=== PATIENT | male | born 1980 | race Caucasian/White ===

== ENCOUNTER 2023-10-23 13:13 | Outpatient (OUT) | payer BC, SELFPAY | END 2023-10-23 13:14 | disposition home or self-care (01) | LOC: PST 13:13 | PROVIDERS: Visit Provider Surgery | DX: Z01.818 Encounter for other preprocedural examination (principal); K64.8 Other hemorrhoids ==

== ENCOUNTER 2023-10-29 10:19 | Day surgery (SDC) | payer BC, SELFPAY ==
[2023-10-29 10:44] VITALS: BP 147/87; PULSE 66; TEMP 35.8; O2SAT 97; BMI 36.5
[2023-10-29] MEDS: LACTATED RINGER'S SOLUTION 1,000 ML 50 ML IV (10:58)
[2023-10-29 15:29] VITALS: BP 100/64; PULSE 76; TEMP 36.3; O2SAT 96
[2023-10-29 15:44] VITALS: BP 126/68; PULSE 81; O2SAT 96
[2023-10-29 16:14] VITALS: BP 130/70; PULSE 66; O2SAT 96
--- NOTE | 2023-10-29 16:32 | PM.GSPRC ---
Date of procedure: 10/29/23 Indications for Procedure: diagnostic colonoscopy for Family Hx of colon cancer and Hx of internal hemorrhoids Pre-op diagnosis: diagnostic colonoscopy for Family Hx of colon cancer and Hx of internal hem Post-op diagnosis: other (sigmoid polyp (35-40cm), sigmoid diverticulosis ) Procedure: diagnostic colonoscopy with hot snare polypectomy at 35-40cm Previous colonoscopy: never PROCEDURE: The patient was given IV conscious sedation.? The patient's SPO2 remained above 90% throughout the procedure. The colonoscope was inserted per rectum and advanced under direct vision to the cecum without difficulty.? The prep was good.? Findings: Terminal ileum os: normal Cecum/Ascending colon: Normal Transverse colon: normal Descending/Sigmoid colon: mild diverticulosis, hot snare polypectomy at 35-40cm Rectum/Anus: examined in normal and retroflexed positions and was moderate internal hemorrhoids noted but no signs of bleeding or prolapse Withdrawal Time was (minutes): 15 The colon was decompressed and the scope was removed.? The patient tolerated the procedure well. Recommendations/Plan: 1.? Lifestyle and dietary modifications as discussed 2.? F/U Biopsies 3.? F/U in office, colonoscopy repeat timing dependent on biopsy results 4.? Discussed with the family Findings: pedunculated sigmoid polyp Anesthesia: MAC Surgeon: Pawel Early Procedure Summary: diagnostic colonoscopy with hot snare polypectomy at 35-40cm Estimated blood loss (mL): 2 Specimens: see above Complications: No Pathology: other (sigmoid polyp ) Condition: stable Disposition: PACU
[2023-10-29 16:44] VITALS: BP 124/76; PULSE 64; O2SAT 95
[2023-10-29 17:14] VITALS: BP 124/76; PULSE 64; O2SAT 95
== END 2023-10-29 17:14 | disposition home or self-care (01) ==
PROVIDERS: Visit Provider Surgery
PROC: (CPT 811; principal; 2023-10-29 11:35)
DX: Z12.11 Encounter for screening for malignant neoplasm of colon (principal); K57.30 Diverticulosis of large intestine without perforation or abscess without bleeding; D12.5 Benign neoplasm of sigmoid colon; Z80.0 Family history of malignant neoplasm of digestive organs; Z87.898 Personal history of other specified conditions; K64.8 Other hemorrhoids; Z80.6 Family history of leukemia; Z80.49 Family history of malignant neoplasm of other genital organs; R19.4 Change in bowel habit; F41.9 Anxiety disorder, unspecified; M19.90 Unspecified osteoarthritis, unspecified site; Z86.16 Personal history of COVID-19; I10 Essential (primary) hypertension; F32.A Depression, unspecified; E78.1 Pure hyperglyceridemia; Z87.891 Personal history of nicotine dependence; Z90.49 Acquired absence of other specified parts of digestive tract; Z98.52 Vasectomy status
CPT/HCPCS: 45385; 88305; 99999; J2704

== ENCOUNTER 2024-06-09 20:43 | Outpatient (OUT) | payer BC, SELFPAY | END 2024-06-09 20:44 | disposition home or self-care (01) | LOC: SLEEP 20:44 | PROVIDERS: PCP Nurse Practitioner Family; Visit Provider Nurse Practitioner Family | DX: G47.33 Obstructive sleep apnea (adult) (pediatric) (principal); G47.10 Hypersomnia, unspecified | CPT/HCPCS: 95810 ==

== ENCOUNTER 2024-06-30 20:54 | Outpatient (OUT) | payer BC, SELFPAY ==
--- OUTSIDE RECORDS SUMMARY | 2024-06-30 20:56 | XMS_ITS | CCD ---
Author Organization [facility] Care Team Providers Care 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 Name Role Phone CORINNE MO Admitting Unavailable CORINNE MO Consulting Unavailable CORINNE MO Attending Unavailable MARCIA ESTEVES Consulting Unavailable MARCIA ESTEVES Attending Unavailable MARCIA ESTEVES Admitting Unavailable NONE, XXXX Primary Care Physician Unavailab Myranda Randall Attending Unavailable Myranda Montanez Admitting Unavailable Reshma Kiser Unavailable YECENIA SHIPLEY Primary Care Unavailable MELODY DENG Attending Unavailable MELODY DENG Referring Unavailable YECENIA SHIPLEY Primary Care Unavailable MELODY DENG Attending Unavailable MELODY DENG Referring Unavailable YECENIA SHIPLEY Primary Care Unavailable Mary Malone DO Unavailable Zhanna Metz MD Primary Care Provider Zhanna Burger RN Unavailable JOHNNY ABREU Attending Unavailable FRANCHESCA EARLY Attending Unavailable CARLOS ALBERTO MOORE Attending Unavailab JOHNNY Dixon Attending Unavailable JOHNNY ABREU Attending Unavailable Johnny Abreu NP Unavailable Medications Current Medications Medication Drug Class(es) Dates Sig (Normalized) Sig (Original) [id number] 200 actuat albuterol 0.09 mg/actuat metered dose inhaler (1 source) beta2-Adrenergi c Agonist Start: 07-16-2022 take 2 puff(s) by inhalation four times daily as needed Albuterol Sulfate HFA 108 (90 Base) MCG/ACT 2 puffs Inhalation 4 times a day prn Jul, Active ascorbic acid 250 mg oral tablet (8 sources) Vitamin C take 1 tablet by mouth in the morning Ascorbic Acid (vitamin C) 250 MG tablet Take 250 mg by mouth in the morning. Active atorvastatin 10 mg oral tablet (6 sources) HMG-CoA Reductase Inhibitor Start: 04-06-2024 End: 07-05-2024 take 1 tablet by mouth once daily atorvastatin (Lipitor) 10 MG tablet Indications: Mixed hyperlipidemia (CMS/HCC) Take 1 tablet (10 mg) by mouth Daily 90 tablet 04/06/2024 07/05/2024 Active busPIRone hydrochloride 5 mg oral tablet (9 sources) Start: 03-07-2024 End: 06-03-2024 take 1 tablet by mouth twice daily busPIRone (Buspar) 5 MG tablet Indications: Generalized anxiety disorder (CMS/HCC) TAKE 1 TABLET BY MOUTH TWICE A DAY 180 tablet 1 06/03/2024 Active cholecalciferol 0.05 mg oral capsule (8 sources) Vitamin D take 1 capsule by mouth in the morning cholecalciferol (Vitamin D-3) 50 MCG (2000 UT) capsule Take 1,000 Units by mouth in the morning. Active docosahexaenoic acid 120 mg / eicosapentaenoic acid 180 mg oral capsule (8 sources) omega-3 (Fish Oi l) 1000 MG capsule 1 capsule 1 (one) time each day at the same time. Active escitalopram 20 mg oral tablet (9 sources) Serotonin Reuptake Inhibitor Start: 11-05-2023 take 1 tablet by mouth once daily escitalopram (Lexapro) 20 MG tablet Indications: Panic disorder (episodic paroxysmal anxiety) (CMS/HCC) TAKE 1 TABLET BY MOUTH EVERY DAY 90 tablet 1 04/30/2024 Active Escitalopram Oxa late 20 MG TAKE 1 TABLET BY MOUTH EVERY DAY FOR 90 DAYS Oral for 90 Days Active hydroCHLOROthiazide 12.5 mg / losartan potassium 100 mg oral tablet (9 sources) Thiazide Diuretic, Angiotensin 2 Receptor Wu Start: 03-07-2024 take 1 tablet by mouth once daily losartan-hydroCHLOROthiazide (Hyzaar) 100-12.5 MG tablet Indications: Essential (primary) hypertension (CMS/HCC) TAKE 1 TABLET BY MOUTH EVERY DAY 90 tablet 1 03/07/2024 Active Losartan Potassi um-HCTZ 100-12.5 MG TAKE 1 TABLET BY MOUTH EVERY DAY FOR 90 DAYS Oral for 90 Days Active metoprolol tartrate 25 mg oral tablet (9 sources) beta-Adrenergic Wu Start: 05-13-2023 take 1 tablet by mouth twice daily at mealtime metoprolol tartrate (Lopressor) 25 MG tablet Indications: Primary hypertension (CMS/HCC) TAKE 1 TABLET BY MOUTH TWICE A DAY WITH FOOD FOR 90 DAYS 180 tablet 3 04/30/2024 Active Metoprolol Tartr ate 25 MG TAKE 1 TABLET BY MOUTH TWICE A DAY WITH FOOD FOR 90 DAYS Oral for 90 Days Active Multiple Vitamin (multivitamin) tablet (8 sources) take 1 tablet by mouth in the morning Multiple Vitamin (multivitamin) tablet Take 1 tablet by mouth in the morning. Active predniSONE 20 mg oral tablet (1 source) Start: take 1 tablet by mouth every twelve hours predniSONE 20 MG 1 tablet Orally 2 times a day for 5 day(s) Jul, Active propranolol hydrochloride 20 mg oral tablet (8 sources) beta-Adrenergic Wu propranolol (Inderal ) 20 MG tablet TAKE 1 TABLET BY MOUTH 30-60 MINUTES BEFORE ANXIETY-PROVOKING SITUATION, TWICE DAILY NEEDED FOR 30 DAYS for 30 Active zinc gluconate 30 mg oral tablet (8 sources) take 1 tablet by mouth once daily zinc gluconate 30 MG tablet Take 30 mg by mouth Daily Active Completed/Discontinued Medications Medication Drug Class(es) Dates Sig (Normalized) Sig (Original) Augmentin Tablets 875 MG (1 source) Start: 07-09-2015 take 1 tablet by mouth every twelve hours Augmentin Tablets 875 MG 1 by mouth every 12 hours, recommend probiotics while taking antibiotics for 10 days Jun, Not-Taking icosapent ethyl 1000 mg oral capsule (7 sources) Start: 01-24-2024 End: 04-29-2024 take 2 capsules by mouth at mealtime Vascepa 1 g capsule Indications: Hypertriglyceridemia (CMS/HCC) TAKE 2 CAPSULES (2 G) BY MOUTH IN THE MORNING AND 2 CAPSULES (2 G) IN THE EVENING. TAKE WITH MEALS. 360 capsule 1 04/27/2024 04/29/2024 Discontinued (Alternate therapy) Problems Active Problems Problem Classification Problem Date Documented Date Episodic/Chronic Anxiety disorders (17 sources) Generalized anxiety disorder; Translations: [Generalized anxiety disorder] Onset: 01-01-2018 03-25-2023 Chronic Chronic obstructive pulmonary disease and bronchiectasis (1 source) Bronchitis, not specified as acute or chronic Episodic Disorders of lipid metabolism (20 sources) Hypertriglyceridemia; Translations: [Pure hyperglyceridemia] Onset: 03-10-2019 04-26-2024 Chronic Essential hypertension (10 sources) Essential hypertension; Translations: [Essential (primary) hypertension] Onset: 09-23-2023 09-23-2023 Chronic Headache; including migraine (16 sources) Refractory migraine without aura; Translations: [Migraine without aura, intractable, without status migrainosus] Onset: 10-23-2017 Resolved: 09-23-2023 03-25-2023 Chronic Headache; including migraine (1 source) Headache; including migraine; Translations: [HEADACHE UNSPECIFIED] Onset: 05-27-2021 Influenza (1 source) Influenza due to other identified influenza virus with other respiratory manifestations Episodic Miscellaneous mental health disorders (8 sources) Insomnia disorder related to another mental disorder; Translations: [Insomnia due to other mental disorder] Onset: 10-23-2017 03-25-2023 Chronic Mood disorders (18 sources) Chronic depression; Translations: [Chronic depression] Onset: 10-14-2017 03-25-2023 Chronic Other connective tissue disease (1 source) Pain in left arm; Translations: [Pain in left arm] Onset: 12-05-2023 Episodic Other connective tissue disease (1 source) Pain in upper limb Onset: 12-05-2023 Episodic Other nutritional; endocrine; and metabolic disorders (8 sources) Lipoprotein deficiency disorder; Translations: [Lipoprotein deficiency] Onset: 03-10-2019 03-25-2023 Chronic Other nutritional; endocrine; and metabolic disorders (10 sources) Body mass index 30+ - obesity; Translations: [Obesity, unspecified] Onset: 09-23-2023 09-23-2023 Chronic Other upper respiratory disease (1 source) Nasal congestion; Translations: [NASAL CONGESTION] Onset: 05-27-2021 Episodic Other upper respiratory infections (1 source) Acute pharyngitis, unspecified; Translations: [ACUTE PHARYNGITIS UNSPECIFIED] Onset: 05-27-2021 Episodic Residual codes; unclassified (4 sources) Obstructive sleep apnea syndrome; Translations: [Obstructive sleep apnea (adult) (pediatric)] 04-29-2024 Chronic Residual codes; unclassified (4 sources) Hypersomnia; Translations: [Hypersomnia, unspecified] 04-29-2024 Chronic Unclassified (2 sources) CONTACT W/AND (SUSP) EXPOS COVID-19; Translations: [CONTACT W/AND (SUSP) EXPOS COVID-19] Onset: 05-27-2021 Unclassified (1 source) Arm Injury Onset: 12-05-2023 Viral infection (1 source) COVID-19; Translations: [COVID-19] Onset: 05-27-2021 Past or Other Problems Problem Classification Problem Date Documented Date Episodic/Chronic Biliary tract disease (20 sources) Cholecystitis; Translations: [Cholecystitis, unspecified] Onset: 03-23-2019 03-25-2023 Episodic Blindness and vision defects (8 sources) Presbyopia; Translations: [Presbyopia] Onset: 09-23-2023 09-23-2023 Episodic Conditions associated with dizziness or vertigo (8 sources) Dizziness; Translations: [Dizziness and giddiness] Onset: 10-23-2017 03-25-2023 Episodic Fever of unknown origin (1 source) Fever, unspecified; Translations: [FEVER UNSPECIFIED] Onset: 07-22-2020 Episodic Immunizations and screening for infectious disease (4 sources) Contact with and (suspected) exposure to other viral communicable diseases; Translations: [CONTCT EXPS OTH VIRL COMMUNICABL DZ] Onset: 06-20-2020 Episodic Mood disorders (4 sources) Mood disorders Onset: 04-29-2024 04-29-2024 Other ear and sense organ disorders (8 sources) Bilateral tinnitus; Translations: [Tinnitus, bilateral] Onset: 09-03-2019 03-25-2023 Episodic Other lower respiratory disease (1 source) Cough; Translations: [COUGH] Onset: 07-22-2020 Episodic Other nervous system disorders (8 sources) Abnormal gait; Translations: [Unspecified abnormalities of gait and mobility] Onset: 09-08-2017 03-25-2023 Episodic Other nervous system disorders (8 sources) Ataxia; Translations: [Ataxia, unspecified] Onset: 09-13-2017 03-25-2023 Episodic Residual codes; unclassified (8 sources) Dyssomnia; Translations: [Sleep disorder, unspecified] Onset: 09-22-2017 03-25-2023 Episodic Residual codes; unclassified (8 sources) Family history of ischemic heart disease; Translations: [Family history of ischemic heart disease and other diseases of the circulatory system] Onset: 09-17-2017 03-25-2023 Episodic Unclassified (1 source) CONTACT W/AND (SUSP) EXPOS COVID-19; Translations: [CONTACT W/AND (SUSP) EXPOS COVID-19] Onset: 05-22-2021 Unclassified (1 source) Contact with and (suspected) exposure to covid-19 Z20.822 Results Test Name Value Interpretation Reference Range Facility CBC AND AUTO DIFFon 12-05-19 ABSOLUTE BASOPHIL 0.1 X10E9/L Normal 0.0-0.2 [facility] Comment on above: Performed By: #### C YESSENIA, CMP #### [facility] ([id number]) [address] [place] [address] 16181 ABSOLUTE NEUTROPHIL 3.4 X10E9/L Normal 1.5-6.6 [facility] Comment on above: Performed By: #### Aixa CASAS, CMP #### [facility] ([id number]) [address] [place] [address] 83758 Basophils/100 WBC (Bld) 1.1 % Normal [facility] Comment on above: Performed By: #### C YESSENIA, CMP #### [facility] ([id number]) [address] [place] [address] 09844 Eosinophils (Bld) [#/Vol] 0.1 10*3/uL Normal 0.0-0.4 [facility] Comment on above: Performed By: #### C YESSENIA, CMP #### [facility] ([id number]) [address] [place] [address] 03804 Eosinophils/100 WBC (Bld) 2.1 % Normal [facility] Comment on above: Performed By: #### C YESSENIA, CMP #### [facility] ([id number]) [address] [place] [address] [place] [address] Erythrocyte distribution width (RBC) [Ratio] 14.1 % Normal 11.5-15.0 [facility] Comment on above: Performed By: #### C YESSENIA, CMP #### [facility] ([id number]) [address] [place] [address] 89253 Hematocrit (Bld) [Volume fraction] 45.1 % Normal 39-49 [facility] Comment on above: Performed By: #### C YESSENIA, CMP #### [facility] ([id number]) [address] [place] [address] 24365 Hemoglobin (Bld) [Mass/Vol] 16.3 g/dL Normal 13.0-17.0 [facility] Comment on above: Performed By: #### C YESSENIA, CMP #### [facility] ([id number]) [address] [place] [address] 43675 Lymphocytes (Bld) [#/Vol] 1.2 10*3/uL Normal 1.0-3.5 [facility] Comment on above: Performed By: #### C YESSENIA, CMP #### [facility] ([id number]) [address] [place] [address] 32555 Lymphocytes/100 WBC (Bld) 23.8 % Normal [facility] Comment on above: Performed By: #### C YESSENIA, CMP #### [facility] ([id number]) [address] [place] [address] 33421 MCH (RBC) [Entitic mass] 29.1 pg Normal 27-34 [facility] Comment on above: Performed By: #### C BCA, CMP #### [facility] ([id number]) [address] [place] [address] 98832 MCHC (RBC) [Mass/Vol] 36.2 g/dL High 32-36 [facility] Comment on above: Performed By: #### C BCA, CMP #### [facility] ([id number]) [address] [place] [address] 20970 MCV (RBC) [Entitic vol] 80 fL Normal 80-100 [facility] Comment on above: Performed By: #### C BCA, CMP #### [facility] ([id number]) [address] [place] [address] 12451 Monocytes (Bld) [#/Vol] 0.4 10*3/uL Normal 0-0.9 [facility] Comment on above: Performed By: #### C YESSENIA, CMP #### [facility] ([id number]) [address] [place] [address] 82341 Monocytes/100 WBC (Bld) 6.9 % Normal [facility] Comment on above: Performed By: #### C YESSENIA, CMP #### [facility] ([id number]) [address] [place] [address] 24355 Neutrophils/100 WBC (Bld) 66.1 % Normal [facility] Comment on above: Performed By: #### C YESSENIA, CMP #### [facility] ([id number]) [address] [place] [address] [place] [address] Platelet mean volume (Bld) [Entitic vol] 8.5 fL Normal 7-12 [facility] Comment on above: Performed By: #### C YESSENIA, CMP #### [facility] ([id number]) [address] [place] [address] 33419 Platelets (Bld) [#/Vol] 196 10*3/uL Normal 150-450 [facility] Comment on above: Performed By: #### C YESSENIA, CMP #### [facility] ([id number]) [address] [place] [address] 17123 RBC COUNT 5.62 X10E12/L Normal 4.10-5.70 [facility] Comment on above: Performed By: #### C BCA, CMP #### [facility] ([id number]) [address] [place] [address] 82485 WBC (Bld) [#/Vol] 5.1 10*3/uL Normal 4.0-11.0 [facility] Comment on above: Performed By: #### C BCA, CMP #### [facility] ([id number]) [address] [place] [address] 10738 COMPREHENSIVE METABOLIC PANE Eladio 12-05-2023 Albumin [Mass/Vol] 5.1 g/dL Normal 3.2-5.3 [facility] Comment on above: Performed By: #### C BCA, CMP #### [facility] ([id number]) [address] [place] [address] 17520 ALP [Catalytic activity/Vol] 68 U/L Normal 39-130 [facility] Comment on above: Performed By: #### C BCA, CMP #### [facility] ([id number]) [address] [place] [address] 59746 ALT [Catalytic activity/Vol] 95 U/L High 0-40 [facility] Comment on above: Performed By: #### C BCA, CMP #### [facility] ([id number]) [address] [place] [address] 65258 Anion gap [Moles/Vol] 9 mmol/L Normal 5-15 [facility] Comment on above: Performed By: #### C BCA, CMP #### [facility] ([id number]) [address] [place] [address] 20627 AST [Catalytic activity/Vol] 51 U/L High 0-41 [facility] Comment on above: Performed By: #### C BCA, CMP #### [facility] ([id number]) [address] [place] [address] 10277 Bilirubin [Mass/Vol] 0.8 mg/dL Normal 0.3-1.2 [facility] Comment on above: Performed By: #### C BCA, CMP #### [facility] ([id number]) [address] [place] [address] 22567 Calcium [Mass/Vol] 9.5 mg/dL Normal 8.5-10.5 [facility] Comment on above: Performed By: #### C BCA, CMP #### [facility] ([id number]) [address] [place] [address] 83189 Chloride [Moles/Vol] 103 mmol/L Normal 98-109 [facility] Comment on above: Performed By: #### C BCA, CMP #### [facility] ([id number]) [address] [place] [address] 95536 CO2 [Moles/Vol] 25 mmol/L Normal 22-32 [facility] Comment on above: Performed By: #### C BCA, CMP #### [facility] ([id number]) [address] [place] [address] 85583 Creatinine [Mass/Vol] 1.07 mg/dL Normal 0.70-1.20 [facility] Comment on above: Result Comment: METH OD TRACEABLE TO IDMS STANDARD Performed By: #### C BCA, CMP #### [facility] ([id number]) [address] [place] [address] 68447 GFR/1.73 sq M.predicted among non-blacks MDRD (S/P/Bld) [Vol rate/Area] 87 mL/min/{1.73_m2} Normal >59 [facility] Comment on above: Result Comment: Reported eGFR is based on the CKD-EPI 2021 equation that does not use a race coefficient. Performed By: #### C BCA, CMP #### [facility] ([id number]) [address] [place] [address] 47210 Glucose [Mass/Vol] 110 mg/dL High 65-99 [facility] Comment on above: Performed By: #### C BCA, CMP #### [facility] ([id number]) [address] [place] [address] Potassium [Moles/Vol] 3.8 mmol/L Normal 3.5-5.0 [facility] Comment on above: Performed By: #### C BCA, CMP #### [facility] ([id number]) [address] [place] [address] 30421 Protein [Mass/Vol] 8.0 g/dL Normal 6.0-8.0 [facility] Comment on above: Performed By: #### C BCA, CMP #### [facility] ([id number]) [address] [place] [address] 69320 Sodium [Moles/Vol] 137 mmol/L Normal 134-146 [facility] Comment on above: Performed By: #### C BCA, CMP #### [facility] ([id number]) [address] [place] [address] 23997 Urea nitrogen [Mass/Vol] 16 mg/dL Normal 5-23 [facility] Comment on above: Performed By: #### C BCA, CMP #### [facility] ([id number]) [address] [place] [address] HUMERUS [address] W CONTon 12-04 CT HUMERUS LT W CONT CT HUMERUS LT W CONT History: possible bicept rupture. Pain in the proximal arm after lifting a heavy structure. PROCEDURE: Automated exposure control was utilized. CT performed through the left humerus No x-rays available for comparison Findings/Impression: * Grossly no fracture or destructive lesion and no convincing arthritic findings * Biceps tendon is not well visualized within the bicipital groove but this is neither sensitive nor specific on CT. Biceps tendon is not well evaluated. * I recommend MRI shoulder if you'd like to assess for proximal biceps tendon pathology. Finalized by Willam Chun MD on 12/05/2023 11:41 AM Normal [facility] MR SHOULDER LT WO CONTon MR SHOULDER LT WO CONT MR SHOULDER LT WO CONT MR LEFT SHOULDER CLINICAL INFORMATION: Shoulder pain, proximal biceps tear COMPARISON: CT humerus same day. PROCEDURE: Multiplanar multisequence images of the shoulder performed. No intravenous contrast. FINDINGS: ROTATOR CUFF AND ASSOCIATED STRUCTURES Long head biceps tendon: No tear or significant tendinosis. Trace tendon sheath fluid. Rotator cuff and muscles: Mild supraspinatus, infraspinatus tendinosis. There is subtle articular sided fraying of the supraspinatus tendon without full-thickness or measurable tear. Unremarkable subscapularis tendon. Preserved rotator cuff muscle bulk and signal. Bursa: No subacromial subdeltoid bursal fluid or thickening. OSSEOUS STRUCTURES Acromioclavicular joint: Type 1 No os acromiale. Mild AC joint arthritis. Bones: No Hill-Sachs, reverse Hill-Sachs, or bony Bankart lesions. No fracture. No osteonecrosis. No suspicious osseous lesion. GLENOHUMERAL JOINT Joint: No significant joint effusion. Normal alignment. Cartilage: No full thickness chondral defect. Labrum: No displaced labral tear. No paralabral cyst. Other support structures: No capsular or ligamentous abnormality. OTHER No enlarged lymph nodes. IMPRESSION: 1. No proximal long head biceps tear. 2. No acute process. Finalized by Erich Ace MD on 12/05/2023 12:46 PM Normal [facility] COVID/FLU/RSV RT-PCRon 07-16 SARS-CoV-2 (COVID-19) RNA OSCAR+probe Ql (Unsp spec) Negative Faves Other COVID/FLU/RSV RT-PCR Positive Faves Other COVID/FLU/RSV RT-PCR Negative Faves Other Coding Summary.on 04-30-2022 Coding Summary. [id number] Gh0bWw+PGhlYWQ+PE1FV JKjE97jrPWczC1YX2vVB J2CURRDVUNMBE6WZM5re DM0JKnmF7KfwkEm CwpepCQeAQ08DWu0ZMY9 kEniHAflnU5pmZEeC9f3 XtUtWZ15rH18MUgkQRLp PqF2WvRcuabutVMp K7ctXoWyaRRgAwb+PHRh YmxlIHdpZHRoPScxMDAl XtQiaNauAU4yKz6lWBWc LWNvbGxhcHNlOiBj h2xyKEDvHQzlVU2qaHbq Y8GbiDC6ABJph0l8Fp56 dHI+EKKhUSL8wGzaZWns a493XkFot4ozVKE8 dSTxMPxmMBQ4P02qd3E0 WVKyRFRhGJI3vRH7qP9v eJpevoxkJ6ObcUJlIcO0 EAK3wNApuB3kvLnt zgelnU7aAfa+D89NWL1X ATBNLC6FThm6Y1FbQynv dHI+AR15XYIvXM10cGDd zEFoq9zplGf6RzZp NKQjWRW5eDazEPoby8Nv PCOzX88ppWIws1D6VQWa nLgswFLqNdEnyOC3gH2e ITflxfokv5ngfktg Krhhx1byyv69xQ37O36y PBulQNNtGOK4APNnMKGu dNvacz6qqA7yNg4+IDxj q6gpv8rtuTv5YmVs JYLkftGndTlqKXI7w8Jy Zf17J2AgyRgcd0KlDbz5 mg26mSKvp4K6uXI8AKxc LGUoyI1nZRjxKnZ7 QQCwBbGppF03eFTzLTbn Su1vgHnyjKacDK9qYNSe htisDGIdeG6uZZWreMVb aUovMK4dDKQjhxrs l069AqCjIQY5PGDdpJPb Q5MslN6vOpRiTEQzORGm W3MeeCNmDTgcN103XJwo VdN3NNWadrByS7Ft OGGwzZaaMhT0r2W3Om0A t0KccosvVLC3RFwoTUNn DeY1RnSfXgA2Q7ZcNep4 VIEmhChaTU0fQ9Rt KOVodmpjpkqjsQZ6LMAb REOuvG56iPAvUCcqXt7x l6M2i123IDMdNSLvmY94 Bv9smEsbHUBirWJM uT9qwbkpg0cmhznbJvDk UUWeRYn9AKy0DCMmfNqe VvCdAAE1NsU0ALU0vNEm bE5wdAqiphdpdR6l Oyc+M28idY9dZEU1VRC2 uugyKQXshaQkVR05HP27 U5IbMqyeoTEbmHM+PGRp kjIubLmnZA2pLkUc u3kxm2AgNYdjH4JbEMJx QWioKnz9XFDzXTU4bYL9 aK0mSJDcXYiop2P0cAR3 B9PpveKazx8vh3kg TZOyPRofF81qzULrl6A6 VRHytIF3EZPqsAvhMhWf hS25Xvf+VJQxkQehk5Ci Hsndf9zil2zrfHk9 IjMwJSIgdmFsaWduPSJ0 l3IgGo33O53kSWjkJOPb IGBrDYUePJSfhDiaob7n gP9nBs9+PGNvbCB3 eIS5uS4jBFHdHxE8ANjc V948EtFsaEHnOtsfx6ql t6hlvJj7BcUhITFzpkHp nBmnWKR0u2TsEa14 A18mKQimTJCvKONiWBNd WSHntElpil8xxC8iNq7+ DZ2ns7ddsm08uV99xPR+ ADYeYPH6uDxxGGly DUTmfB0dHMtbXdS6HHSz BoNigM76wPAwSDknWy4t wTjwcQapZR4oQRVkacem j863QbVto6sgZJRz kCSxTPrgGKE5J34cf6V6 QONwUOChCAL5jEQ2tM7p bGlnbjogbGVmdDsgdmVy zFlmOHkxZEsdH218 IHRvcDsnPlBhdGllbnQg FaZeFMl6F2ZzJam7IKVk tPjcJS4nwPGqUYruQe3j dIygoManVF0wEPEu oszxz846FnEsj5eqXBBy kYNkBZypQMO9L65hs4K6 VBEfOWPgLUI2nFQ9wX4u bGlnbjogbGVmdDsg ziWnaVrjEFsmXBshO133 IHRvcDsnPkJpcnRoIERh sMO2BL01KZ98oDUaj0B3 uQM1O3KhILPcxqju sammvXS1TKIlUPYdbV51 Ib5tlAumHf2rSJAuUII1 QXHbzIPxI1IqcI4sLlAh QOSfZGUwP5PqkIZv BBncT197HWrcCbN3CHBy swSoX3ZxQGXxmAudUxU7 z0K2Ey7DG1D5JS50BW02 eWWnp5D2jGQ1P1Sd NXYbfofdohccdBJ5PRSj PEHvhH23Vk4ymKlvFw6c JWXlPMH9ANKorFEvZ5Se yZ0fSwZgCMNwLDGj Q1BzbNCnMTxoL145KZxm OgU5IFOchsCxD6LdQAYn bEhsFhX9z1H0Yz8RCPi9 HQ90TL29rHYxl1Q3 hFM1S9YtFGDeicqowthp gMK6KGZuCHAqrK98Ge9d tFksTf1mCYLnNFW2RIDs fOGtK0VchL8zAzAr HVDaLTCwD4BfeXRiGLqy L973MPurYsY5PQTmgbXv W4HuSBRtpCdaVgF7c1T7 Nl3EWGTmYR30HNY3 lDU8CM68CO39C4WbSbhv dGFibGU+PHRhYmxlIHdp ZHRoPScxMDAlJyBzdHls XG6sSs5hZCJwHANp rPehiKOmRzLnx9iaTNLo OVwcJO4yyIalC0UfhVG0 OENgl5p7Hf82C17oH5An dXA+BMOvmUY1kPL5 uJ8yTvWlDjE4EMrbW001 PcLcoKNkPjyzg1bsr3tu lHq8XfC7YXYjnrGikXgo THX7i3NlXp27I82g IHdpZHRoPSIxNSUiIHZh mEuvzk7rmC4gLh6+PGNv eGB7tXM9jU1lRcHbAgY4 YUmlS219OsCcpDSq Pptzj5smo3amlXb1HqQg CFSrddIczZceTDJ4c1Ut Hf38Z2FgiZour3MsPbg1 ld66vZZce7O7gWJ9 M4IvZHZqktnyhXArsLuq JK3aPRYhfdyqUCBbsE4w CQPyV4b9WhWtTgI1DWbu Z0CqtdJ0JIUbtVPy XEejVGQ4U63py1Y9YTDb POKfHTZ4pTX3zV9ywWvj bjogbGVmdDsgdmVydGlj MLueRSgkC133UBXd nUdkOTBmrQ2rRGNkiDTh pPwtBC4tBVMgumgaXo2S ANVTFYyEUFABU0PSELXw SjwvdGQ+PHRkIHN0 bNbnTKazCDViqT1nFSMi P5p3HyVuDjK5BLmuC9Rf LQHoflelAa68qS5oGiCl FiD2GZyhO9CndsG6 WZIgaGTwRIauHDJ1W89s d4C3DNQtRZBnZPX7qPL1 pC4jvZonbazuuAPdoZbx dmVydGljYWwtYWxp U164SDTkrUkdBmGzWpA9 KoP9Ezx3W6XoAqe4ZJZw rOjqSD4pxHZsTQltBn1h qEnllHfeXX1zKRSh mzaeRMYjcI3tLZEhnEMr iRcyVX5bUJUqvrmnx265 ZrDwKRD4BLEsoANwK9Ce vP0wMgEdANBiKYZm S5PfgGLgROchK666PSpw BzZ7IQTgmxFpF4BuHTFm cTxpSiN4d8P5Ig18WhGR ZWFyczwvdGQ+PHRk ILW5hWfrFRkpWIPikA7g MCJqZ7w7JqIhKzA6OPxi A1PcVCGscssaQe87nT9z GaOzTzC4FVenB2By yvG8NHPowYCbSYujHAV4 B86ta6H0QMSnDTSfVNL1 oFB7mC4sdFofndyjiSGu dDsgdmVydGljYWwt LLtaK879QLBswBwjEa6e oWP3L9BoJke6FIWgiMlt OD7txPVaUXrlLq8lnDhu bBvrGK9zRZKvueih IJKazG4fFRDebVOemDxj UH5wSYCnxjbiu977WcGt LDZ3QOVssCGfB7OjiX6x RpRmJIAkHSXrF8Jz eLCcMSzhO616TTqrGcG4 BEOeioAaK4CcBNKbcWpw RvA9y2E2Fw0NBDWuMAHk nOTnLlM4I0JlGsgx dHI+TR73PAIeDM24lFPr wYMtc2cwhFv0JoBdUWDa CTN0xHmdWVxgg0HhOPKf I61hlVQes0V7WSQx rHoqjFOzIoKnyFV7aM7k LTmgpzatr1jpcbtoClxk o4hgqs46mY32J15uXXrh ZHRoPSIzMCUiIHZh gCslwd6hyU4fPf5+PGNv uNT9xIM3bC7mZqGiQsA6 AQmvH226YpFkbFCpIjfb a7hpw2ywqJr2UlMh CIInfaMxmWxtXUC1z8Pu Ep97Z11lBHokJAQfOPNv ZSNqGKIpqMaepm8sqG6v Ii8+QH0ho2pkge69 iC70eDN+AXYkXYJ7eQiv RAnsMLEwfJ9tWBfaXqS1 XTGsReNybJ08tSYlTWyk Ij0jsOfniMufNI9s JBUasmppc503QzSbm0lt KVUsgLRwQEroRUN2G90f a8T8CSVlKWZlTYX5tSI2 hR5sdMgudcdbiNKv dDsgdmVydGljYWwtYWxp U459MMRyuOttUkIfhOHg P9raalRMGN6xBkwedDY+ GGMlSQP6uLypNXeb IXLwkG1gDUSsQ9o2UxHb PdO7HPsiM0NofaQ2BMQv hZOgYTJabTVNgI4mwzzt p0zblqzmQhLxIIRj FQa6PEk2KUQzwYstZhCq PSL9DgW2FZZ0vFYbfW9o fDzbrsmirY6rZec+RklO OjwvdGQ+PHRkIHN0 oXzpWTwcDBBrqC1rYZOm R1k6QhSeMdY6YPnuI8Gm qiQ0GFYzqDMbDVFyqRLY xT0hwuxyn4gytijg WfYnSYVoEHo0HDu4LFFm vLhbPmLdQUH0EuN3RXC1 oEXjzR1vwKjalxczxH9h Oyc+TVJOOjwvdGQ+ YYHjOCP2hNmmNZlfCZQo zK5vGJWxC1e5KwUjKkD8 JYtvU8JdxeK5OUBsrCWy WDNazITNrX1icktb j5gepctbLjMvDHIbLYp5 BPe9CAGzrCrvZxXwUYF7 KqG1MWR2nFRynO4vxDky sbaplW0hOut+UGF5 VDB7TG87AK60R5ErGrqu dGFibGU+PHRhYmxlIHdp ZHRoPScxMDAlJyBzdHls OA4oIl8eMDTyBSNn bGxh (more content not included)... Normal [facility] Physician Orderon 04-26-2022 Physician Order [id number] Normal [facility] Physician Orderon 04-25-2022 Physician Order [id number] Normal [facility] Q - HLA-B27 ANTIGENon 2021 HLA-B27 ANTIGEN Negative Normal NEGATIVE [facility] Parts Assembler Comment on above: Order Comment: [facility] Testing performed at: [employer], [employer] [facility],, [address] [place], [address], Envelope Patternmaker: Connie Hodges MD,PhD,KARINE [facility] Collection Date/Time: [facility] Results Received Date/Time: [facility] Reported Date/Time: FASTING: NO Performed By: #### 5 28X #### [facility] Default [address] [place] [address] Coding Summaryon 06-03-2021 Coding Summary HTMLBase 64 NzaptapvCXs1oIl+PGhl YWQ+ZZ9NQQWuO97krHLd dG5EN7gKSF4VWHKWLZTS WZ3NSG7klAN3DYcuP4Yd biAv ZoxzuBQqQE83LWp1REF8 vRrkQYoiqE2osJZpE0x6 YfIgRY52jG26UGawBTWs KxA6ZgPlvocqzOBv G7mrQcOkyGOjQlb+PHRh YmxlIHdpZHRoPScxMDAl YeXhfNilYE7cLs0tRQGt LWNvbGxhcHNlOiBj q2syVHJbMHisMQ5fcCym S6HnyOO3FYJyi7f5Mk63 dHI+JEPaNCI3eFaeCTmo m154MpHbm2caYBP4 zGCpKNulZRH2D97tc6J0 UDVdQHPhLWM3tIB1xK1n hBefoaftZ2WmqNUkLzG7 ZAK1mYYjfL2sfFla rhjbzI2fCzu+H26KLU5F WXPKIB5AHlb8S0TkCxfl dHI+CJ62ITKbWR58aGGk zWSph7jdvHg5HxGj WTUzFSC2iAohJOwny9Ra KURbI35orSPmc0I2TJYc dRorcGKdTtQbaAN2jV5i ALmjliokx9rirwzt Nzcci2wgco84aV39U24r AUerDMMkNSO1JVXyIGCi dGhpcu1iqC9vIy8+IDxj n5ixo6mshXc6UzUy UOXnjaPwsXqyAIT5x8Kq Wm19S0PrgWzqd0XeMxw2 aq66vRUlt1L5eNY4NNtk IKOboN1wGMcuTpM5 NIMhEoJlwY77bQZpNPth Ko5szApwgAkoQM7lPTEw lttxGFWwmY7rCVMuwSKw uXtpWA0pBCXifspi r200QsLnNXR2ZNEkyLWf I6RnoJ2xQgEiXXIwDPBn J1BgeAPiUZulU132SKll LgS5CGCucxEfV6Qb YPPzaWelOtD7o7U2No0E l4UmqjprQFP0NSfuBAUr ZyMkUbLiBtI9D8DeLoo3 TNAdoOsyNK8eL3Py XRIxrvdvjrxmxEL9VSTc RLImaE37pDIfNKnoDr4v z6D9j255NETkXKRdeT60 Dk7ylDsqIZGamVCB vU9evmavf3cdwxdbPuKt CDTcPTv6YLf3SEEnhEvy GrRiKGS8VeZ1HLL2xHZa jS7xhTkliuuvhW7g Oyc+M28ogI4rZXM1WLI0 qveqSRRvdvPwXB99FT65 S6ZbHnvakBXpyLZ+PGRp apSurZtwJF3aVhAb r0cfn5FwUJsaO5MsKTYj TUatJoj2ZQOiBXT5wXP1 bB9sCYLdPSruu4L5cZQ0 H8VrwvSzzh1vm6bm NISlRTwpW87ibPWgt1Y0 OXPohMZ9VWTcoXyiNeJn xD46Yes+KADufNplj6Bp Ldyoa7zrr1mzqOk2 IjMwJSIgdmFsaWduPSJ0 b2QlEr24O08yRLbzNABo DEKhDJZtTGEgxAsyzn1p wH8qZj9+PGNvbCB3 pMS7lW2nJOSgTmW1BFly N450KuPshJPfJkkwj7iz t2qrqZr4RuSeGVCgpoCi dNjrOUZ5h5WiGp57 A61aRLjhEVSnIXLbOTCd IDCkdHztrx4jmL0nJf0+ XG0jl9llua13wP55pPC+ FDDaKAQ5xXmmPDwm JPWqkE4yBDioDvG9ILQv KyYsqN21uVMuQBucNd0i uFsneGkiJX0tVUJlqdmw p026DcPnt8txXNDr zTBfONvtDEW4I99ci1G8 EHTnWATpLSM6iCB9hW4p bGlnbjogbGVmdDsgdmVy rSodCXglUZepG094 IHRvcDsnPlBhdGllbnQg XgUqGJd5M8RsKlw3AISk aWolNP4oyBOoCFcgWf5f sWmogQrrXH3eFRRn nmyao969BpKsi3bmFSMo yGPbDDwbEYC7N50rq4A8 ACBtDPPjQEJ2jUN6xU2l bGlnbjogbGVmdDsg jsQwmFpcGTxbHNqoG060 IHRvcDsnPkJpcnRoIERh cEP5TL98AU44pVZlq4C5 gRX3E9LtQJHswqru hhdaaZB2LKVbBWAenP91 Ai4jvMdeYj9wBMMhLPX6 FRGokZOhJ7SllQ2wFaOc RDVfMSSyE1DyzNNa ACsnH226XOcqDeE2NFNl ysBuN1IxEUArwJkzOyG3 w5U4Hx8AC6X3QJ29WO73 eJIje1O1gLY4O2Ma GVHblyaaxblvuLF1YDXk KHEluT78Cz2ctUgkSw4d RQOiNIM2ZYVppIPwQ2Li cR7gQbEuDVDhBXGz A9NkrKMwETpaX890TTxl JgG4IDIxkwVgV3TuQISc oAnlXiZ9w3J5Qq2VHPr0 GR97AB34wDYhm0I5 zST8C6EnYZKjejodrort yUC3DSUdHBUbhV21Bh0j yJecSa5cSCRzYYK6FPVk sDFxB2IahF3wXbSm XRZrNQRdP4CoqPRlLQtw F849YAhcPoY1DIGlhbFz Y4UyQDEgmHqqAfD4q7S6 Vb7KZLSxNW57GOD8 pTP9QZ55JG60L0VuQsvl dGFibGU+PHRhYmxlIHdp ZHRoPScxMDAlJyBzdHls TP6uIp6jEJIgFCCx wMrooJYfRkPnl6ouZNMy AWxjXM5bqZsjD4YpzFV0 JHKkx8u1Bp45L75hU8Di dXA+WSRfbJM4yYU4 sQ1dTdBqAhV7KWrpL528 TpXpfHThBqamo8ykv7qc rMy6ZcP7HFHggpOibKfy XHA3n8FsYq57V06f IHdpZHRoPSIxNSUiIHZh vFonpj9kvP3lMq2+PGNv aNY3eVT3yP4aHfAdLnG5 KQmfY930NzKosFFo Nxjbr3pec8uzoCt8MlZi PYXgzrLpxTrlTGZ6w8Fq Hp41P6ScbOcyd4UfFjm7 jw10nXWgh5P5jEB0 K7AhPXVzsrfdoMCojPpm VM3fLCJqljwoSAMltT4v FLVdD9z3VkCbMmL9ISvg K2BeshP1SOFxcCXk TJciMWM6R85zu4S8MVYe AEMyBOY8zEG7nO3mkSbu bjogbGVmdDsgdmVydGlj DJthFQhuZ818GCXi vFmlCKUcmT4dZYFrdWVk gYgoML8zBVEpzjzqTl2W RGBYZYbWIBTMU5TVGLHk SjwvdGQ+PHRkIHN0 aVseZSbdPTVisK6mDLCc H5q7ZeUoIeL5IIadV3Fw MWAvvqqiGl42gA0yNuTo HfR7OZsvQ4RoozZ2 QBOleFHoKIbmBLK4C90t y9Z6YUFxGUSbSSC1wOI5 zT9ddYpgnyuhaTBjkQka dmVydGljYWwtYWxp K486FSUreHpwIsCuYtE6 UwX4Lch8L3YaNic0MVIe bGsbDH3xpIOySYgyTs3f nHhwwDlaCJ8hUTZx yaftEGPhtD6fPMSzrCDj nPcdEP0zXHYdvfpcq090 CpObUZK0JJEjnITiQ2Uv jS5qMxSfDYCtWSZb H9YxbGLsELosH952UIui KlM9DNLocaRyO6VqOFSa aBgkWfA4m5J5Iq46NnLU ZWFyczwvdGQ+PHRk QBQ0mTqvWVntXRWsyH5m COQzQ4m1PdDiEmF3SBdw H7GpRSPvkgmvTg67zB5t LkBlUtF5SVwaA1Nd aaM5DPHykQGoUIjvJGR6 N21ew8C1WDYkJWHtJKQ8 oQK4kO6btCyylrlxjDVx dDsgdmVydGljYWwt EZtcC108SSGpyWxkKy2J MXO3Z8PmPlf4USSyiWgq ED2jyHIvHTglBs4saUht nOfpBM7cGWXwvevn OPRckG3uFRWwcLIagPtp QX4eTLLypzlxt603OjCp DJF7NIHejGSzK5VcqQ8s EqHaLVToEUFcR9Ys pWFwUYpbX453ZCvnNoV4 FDHmkuQgM2MnODDapWam TrB5v8S7Bg3PXNipyEE+ QN11cb29G1CnObrq Kel8UMHjZOY1eHD0aU6p DTTcTKcsj1J1sKK3O8Pg usDcig9ta3txOLWbJIxr N98ipHElc4Z3FBMx cQW3RELojPsuTpEigB61 Oyc+CLBhnArns0JbDscz q3iyw9vylOc5YrVvAZPs kpAcmUegPRJ9z5Tf Lb74N56cMZfkMRXtWWQp ECUhCSBjiBlcni4roA2x Ii8+TTSntRL3oUB3oB6t UmTqTwA5IEylZ943 SwOkwBOgXyhdt7uor3to cJg2HuBpQWXbcmXqqWcf QAR8x4ImIa58Q3FgdEdf d4XgNhx5ug03cNTe y8I3mMP9K3QpJADfpxkd nJJboLbsMX7iOCBuijlh ZAGnpI1sHLYmH5a2MvDg TdA3IHayS1OcwzU2 ZRJitPCiLWMmkJWAeK7e kpznp1jasppiXpDmVHKd EPq5CCl9PFGwiOrrFcVd IWF4FgN1JLR4nNGl jC5buXepalilnQ5bKfr+ GLh0c5wccGXjJV9zfPK6 QE88AY08dCApk5Y1vXM4 G0EuPXWataxzoqjr oJL0VOIyXMHcsR25An6c iIcaJz1qOWSoHKD9ZVYc eKDeQ1QbxH2sHlUvDJBh LSLaZ4LhdZZiJSsz Q570RGkvZnF7EGTghoBn Q1AsLFGooUmfLpD9t0A5 Pl4BKN67EP14XH52iLOj r3D3mBH3V4ZrQYEe vfgpagogfJA1KLTeHECv yB65Vi1tjAiqAv5mDABn IEP7VFVvwHGwY9FknG5c HrQsHQIjRNNvW8Uv hULcMQedL518OXdmMaN2 FIDgwsHyG0FjRYLumGjj LmZ2n0X4Xj3BQf74PV55 BC84zTBmu8J8zUM6 J8OhEBXuvypfcoflaJZ8 WCSpMYScaT13Km1egWvl Uj2gOTJhDZH1RJRwlSZw H4SklO4mRxUtBUMv ULFjE0FsrCWbTNsrQ956 YGfvPoZ0YHWcjbEmX8Ve EFLywUgjUwK8i4P3Me4H RPzxrff8Y9WrJpri dHI+BJ42ZTQvDL32vYSc eSLpa1vsbDl0LaZzJCGc AJJ8mWscYUswl0MaXXKr P91akXTxw2A0KUCx bGx (more content not included)... [facility] Coding Summary HTMLBase 64 WnhsqbydEDd3oGv+PGhl YWQ+PE3EQERfU49zmBEq oC5NK1jQEH0NHVITOGZL CQ9WCD8qjQV6ADnvD2Ma biAv IjcaiXGnKL14DXs1NLZ7 xCdfGCyisE6kwLSbN6w7 LvJyZB98vG65TErvPDEs ZlQ7NsLwolsorXVb W4fuGgDufNJrYxb+PHRh YmxlIHdpZHRoPScxMDAl TpMykFlxEC5kPd7pEQLa LWNvbGxhcHNlOiBj m8zlXFNqSAgzHN3cdFbm R3YjzNR9LIDrb8x8Sf21 dHI+IMGfFEM0uFmjDQrf j152MkYax0bsYAH2 iAJgOFhpQNX4M25lv5R1 GRFqVCViNFA0rXH9oH4z zVcydeiqX0AyfGXoEvW3 SAO4mUKxrH3baWia bxrncZ8uOze+N83FWI6S NWUHOL2SJeu7G9JvZqxv dHI+RD53NKRfIJ79iFXk dMFbv8lvbDt2WdTq LDSlMBJ5fYkkRVudu6Qz TWVjJ17seYPcl6O8MEIe vSjfuVVxCjPajFI1jQ2e JNjeovoqi5wxhbbi Itpbz2atqx04fA40C77p FKvjRFIlOOI1SGBgOHUr wYnkte5kqK4mCn5+IDxj f6kby9wxvUo7NaPy PPZvziQccHqbTQV2s8Yx Th27R8QuiMbse7DcKdx5 dc33eMBig9U8rUT4YCku KWOvzR4fREwlRbK4 EESwOaNxeZ86sBBtJZjg Gl4rgAlplVrxUA4nHDQe qfbyEOKhyJ0bYZAvxANh mZieOZ7dVJCdgpys b696StIxTFQ4CBJzxQVn P4AqdB2vIeXuZBCnLMGz I7JvfXJxDBiqJ186WDzr EdF0BXQmnkDmF2An NAEtdVqpRiP9a2O9Uw0L u8XdqcrgFDH5DIzuZJHt ZcZgExUnAzV4I1QyQeh7 FBLwaDyyOI9dY5Yt DKEcpabeiakioZV9JZHs VTHyrJ14iFCvBAiuCp3y n3K9u719VWQpJQOchG38 Pc5ocLmyFMIyzLNT dL6fcllto7inpttkQwCv UKRjCMk7GSg9OQXoyLja QcHwYBE9LeY0BUG3bQSt sP9pkNtyxcncvQ5x Oyc+A24yfS1wPFP8YMP0 ktaxFGHaekCsJN34KR12 Y1YmVxfzoZXfkGC+PGRp laWolSgpPB4zLdLv c5nii3XcZAdjY8VsLUIh ICkeDfu5BLDnEUY3sGI6 iD2yLUReZPzyg5Q6hGJ3 V9UyzcEtee0xc8sq BTWfRJmtU77wrYXmz3E2 VXRayJT8XEDbrEnoWlOu rM61Irn+AEFprXsdb4Fj Vvjzp2vtf5mcqQw2 IjMwJSIgdmFsaWduPSJ0 d8OxFu08R12tHRcmTFGi TWScFICkWQUzaNvsjv1o vP9iNt2+PGNvbCB3 lFG0rJ3pMTIyZwP7ZWfj T159HzMvkBMtNojrx6os q5fnmDn4LdAoZHJkelNn vPebUIJ2e0NuCu44 L34wTBfxPZHrGDHqQHGt NZYvqDplqj2aeM7pQi3+ JZ0ah0nknq95yG53hQD+ BCQmPIJ1gLbpBPhv DSSilF4fFDmoGjA5AOFz LbWhsU99cLDgCWpbNi9h yBfyuXclXN3zCDKxpifl g893WmFeb6snWYMw mVSlCFmbUVD7K83cg1Y6 GDUfRWRnYVK5wEE1jM5y bGlnbjogbGVmdDsgdmVy hTgpPEeqOBycQ644 IHRvcDsnPlBhdGllbnQg IdYsRDq4V8HeBll8YPGz wAddZN7jxWSzLTjlUx3w lFngsMacZT4tQGYc acwpg489KvIhp0pnFZEs tISmPCusITB7A55oh8H6 XLUhWUBeDOV3cIY4hX5z bGlnbjogbGVmdDsg gvYijEoiVDdhPYwcY211 IHRvcDsnPkJpcnRoIERh sXX0QU00ZB90vTKse0Y1 fMZ7I9DjVAIciecq ynlteGE1WZWfSQXtyD52 Wp2bfYziMa4aKVGeYGW8 PFClxGIlB4UnuH8jMoQy VDWtOZViC8BkjMPq KFozC280KWxlBwW3EIRx jkErE3GsCYNxwArdNoS0 z3Q7Ix1MR0Z6VY45HK41 tYWaf0R7lKX2K5Wc UTFecupuwrryiQX4HGBp ORGtiA49Fi9mmHeeCn6m LAQtXJQ7INCfmJGxI1Wi dV7qVqLkYNNiCNGk Z5CbrADbNTtlR383WXod SuO2HKPjnoBrE7ArHDYh hZnjNqL9w0C2Bi3XZWa7 QO22SE58cFJcv9S2 cZT4E3XzXYTpfswtvcnt iGR6GQDlBXEltT65Zw6h eRolPx9sKQHpZKD8RJNw ySLkZ9XvsU8cNqYx YSRdLETzE2PwbJIbYIcl W263WJenWjS3DUCiexKr Q2JtTHRtzEwmYfR8f3G4 Jt5ZTAYnSA47OMQ9 pJL8XC84OA32M8NcUhao dGFibGU+PHRhYmxlIHdp ZHRoPScxMDAlJyBzdHls WI1eOg1oZHFzDIIp fJxnrBVyUeMfi2xqSEHq UWdqYK8gbZrpI3VjgUZ3 GPNfa9p4He74I90tX9Tk dXA+LLRvlDK2iAB4 pI5nZaLeMgI6KByhM232 EbZfqRUyLephe0khu5ko zZe6JpL1ZCDkquPdyRzs CMM9b9WbWx12T26w IHdpZHRoPSIxNSUiIHZh lYghou2jzO3xFq2+PGNv kZX8eSX7aJ4iAiRuBrK6 MPlnE163MyPasVUk Pubey8uzt2hyiOe6PhCv RVTeweOlhXqcLSR0i9Gs Dm62F8EikNvyf4JcNix9 yt59zTLfk1S6wGB9 Z6BeCANiqecpvVNsmTpj EB1jVUGrbwleRDVqoO2p FKUuM9o8XiTbUpI0TEub M6HfknN0QNYqlZGt RMnoERZ3K98ip0H5YGUy RQHgGRR2rDP2kX7qvHzl bjogbGVmdDsgdmVydGlj ZHonLFldJ697AEZr hTrgEIFcrA0qUUAhnNVc qNkyKE1nEXFnimnnDp0A VEFUUBhYIFBUN3CMLULn SjwvdGQ+PHRkIHN0 aGbrWNleROBmeC0lZOCb A5l0CdKcSuT4MVetE8Lq YKJztgptOp62aP4sYxPx MvX2EYohT8CimhO1 STZwfKDpMWwiETT9D36g a9N7GLGbKRMoRJF3yHZ4 iI1rnIfevhqusYNgnDpc dmVydGljYWwtYWxp R054CAEwmPovOvHdRrO5 JrK3Nez0I4XxXap3YABu mZluZW6jgFYqPCasNu1d oExzlIvxDY5dYXRl madcDBGskF9dQVNfuOZb sQzbIS5hEPHtklqcf160 DoNaKEI0RPXivDVhB6Xd qT3lZxErJTDkDXCs R4EidBYxMZrzP901JNum KqY5ZCEyhzBpI8RwPDLi xIxvYcH2a0G1Da57BzJI ZWFyczwvdGQ+PHRk GBZ1vMiaBZbpXVUggA2b PHOmP8w4YvPeFfG7JBji Z8GfGBVmehcqWp88cN7q YlAbDrY5HKunX6Jd qhO2LXOvnXIxUNjiXGD8 M99nm9I7LUJmROQkWRB2 oER3xZ1yrAfvtntfySWz dDsgdmVydGljYWwt OVmcM805KRGoqJizNd1J CHS0B2DfTbo5GCPsuTqa ZN7etYSsAGgeBg3sqWjn nJslVK6dZKCpjfmw JUMwqL6vHADizGYlhVlc PG4vRTUmmsmoh180ZnIh HAO2FCImzEGxO6SqiD3v UiTdDHQbMJVlH3Mi qSQvNYssB096XOkgSoR5 DWZtcdMmM9YjHSTwkCin YnH6q5N6Tc0YfMBqP3Bj I0j7Q4NrUpfskUS+ MG92UYKtXK29jCHtyYSb e1wpdGx6NoIoRREwEEB3 dAnkNTkfz6ExXWOgM42v fOKzp6X0THVejCzq iXClIiGxfDU3pP5jMIpu pqqtk0jbdukkBjclw3lm lq09fX38J06sSOqnSHAz PSIzMCUiIHZhbGln wy5nzV0nEc3+PGNvbCB3 yTW6pJ8kVnEyXqB2QXra Z928WvCouLPnIxmsj9hr g8alrIo3VnYzDLGk fgGbrKgfWVL7e0HlHr90 J45oYEntZGYnJJLjMMYv CFNykWmtam6jwC3fFp7+ KC3mh4jwif91aL25 dHI+FZHcLGJ8vKqdZTat PXRqsO3rHIzgDxD9EEVb XxBdtS11pMBfJIurCq3s tTegvTwhAE5nHSHv tavcb707ZuNca6eeHFNg zKJyENhiJAZ9V75rl7Z2 GYGsZMBfSCL3xJQ9vG0a bGlnbjogbGVmdDsg snSwxOtpEPpjWXxhS144 JJPcnCjxNkInaUMjF5bq kyWTHB1pBdkdnPY+PHRk PUN5gCrqZPeyZNAy dD4kNGFoM0z4SeBdHaM2 DVhvQ7AgflV6LWYisJRq WFXlyZLHbG4brmxxu9sx cjogIzAwMDAwMDt0 LKk4HKTgbAdlTrDqIJK7 KoK3IGO1tOKqjJ6acDeh hbhraH0nKyl+RklOOjwv dGQ+AVFzCJA2lCbs EJrxIDLamF7cZBWuO0m2 KwLpVbF0JOdnH7SihcV6 MQVioWPtAVDpeTYOeW9s btwtx7lifvtoOzEd SGBzGTf6LPs7TXMmqDfb RwYjPMQ6CmA3AXM7kXIj sD3cuEyewbbapB6uPwo+ TVJOOjwvdGQ+PHRk WIZ4dUlqDEufQQUepX2s IBBxH3p0KoFqUiB1NEqh Q0CcaaU6YZAjsBQeDQCu qXPFrA5lcfvxh7cz wmmlKzDkDBWgIMf8VKv0 TUAeeIpzJbBcWCQ2RpF6 CNR6rTFjbK8wvYesznic vX5cKri+OME6OCC6 EO08TH45O2LpRcgtdQWz bGU+PHRhYmxlIHdpZHRo GQuuKGHcDfIpdPllVC7g Ki0aWEZvEFGgeRed cHN (more content not included)... Normal [facility] .Auto Diff 05-26-2021 Auto [place] % 8 % Normal 07-26 [facility] Comment on above: Performed By: #### 1 [id number], 61951794, 9233807, 0873023559, 5506132628, 0630013822 #### [facility] (DEFAULT) [address] [place] [address] 36208 Baso Abs# 0.0 x10 Normal 0.0-0.2 [facility] Comment on above: Performed By: #### 1 [id number], 85394600, 8856723, 6636969791, 6757226949, 2967091722 #### [facility] (DEFAULT) [address] [place] [address] 05048 Basophils/100 WBC (Bld) 0.4 % Normal 0.2-2.0 [facility] Comment on above: Performed By: #### 1 [id number], 14969778, 6042808, 5487685740, 3175925594, 7217100842 #### [facility] (DEFAULT) [address] [place] [address] 53427 Eos Abs# 0.0 x10 Normal 0.0-0.4 [facility] Comment on above: Performed By: #### 1 [id number], 00642009, 9198486, 2345486397, 7161613274, 2385274702 #### [facility] (DEFAULT) [address] [place] [address] 50429 Eosinophils/100 WBC (Bld) 0.4 % Low 0.9-4.0 [facility] Comment on above: Performed By: #### 1 [id number], 67536792, 5636117, 5882360008, 7671207418, 8648675720 #### [facility] (DEFAULT) [address] [place] [address] 46956 Lymph Abs# 0.3 x10 Low 1.3-2.9 [facility] Comment on above: Performed By: #### 1 955438676, 97907091, 7475830, 3960725392, 6930009711, 2455569541 #### [facility] (DEFAULT) [address] [place] [address] 26431 Lymphocytes/100 WBC (Bld) 13 % Low 14-48 [facility] Comment on above: Performed By: #### 1 773092861, 37604102, 6596598, 6934192888, 9339437781, 7233542679 #### [facility] (DEFAULT) [address] [place] [address] 12859 [place] Abs# 0.2 x10 Normal 0.0-0.8 [facility] Comment on above: Performed By: #### 1 852951991, 23310156, 8802301, 6398402266, 3293686734, 5879169400 #### [facility] (DEFAULT) [address] [place] [address] Neut Abs# 2.0 x10 Normal 1.5-9.2 [facility] Comment on above: Performed By: #### 1 434045280, 26780300, 1751663, 0864550845, 9502530015, 3448905450 #### [facility] (DEFAULT) [address] [place] [address] Neutrophils/100 WBC (Bld) 78 % Normal 44-88 [facility] Comment on above: Performed By: #### 1 290206437, 14302274, 1167210, 8606486318, 0781076341, 0012865120 #### [facility] (DEFAULT) [address] [place] [address] CBC w/ Auto Diffon Erythrocyte distribution width (RBC) [Ratio] 13.7 % Normal 11.5-15.0 [facility] Comment on above: Performed By: #### 1 [id number], 59736216, 4281319, 1400709475, 7818703279, 3114852927 #### [facility] (DEFAULT) [address] [place], [place] [address] Hematocrit (Bld) [Volume fraction] 41.8 % Normal 34.8-51.9 [facility] Comment on above: Performed By: #### 1 [id number], 73347408, 0659386, 9308554081, 1513173915, 1902291687 #### [facility] (DEFAULT) [address] [place] [address] 77818 Hemoglobin (Bld) [Mass/Vol] 14.6 g/dL Normal 11.8-17.7 [facility] Comment on above: Performed By: #### 1 917122617, 92547639, 5042363, 9842840489, 1060328695, 6260870583 #### [facility] (DEFAULT) [address] [place] [address] 60386 Instr WBC 2.6 x10 Invalid Interpretation Code [facility] Comment on above: Performed By: #### 1 133751525, 83094054, 2227783, 4847214227, 9421566184, 2134078611 #### [facility] (DEFAULT) [address] [place] [address] 60493 Man Diff? Auto Normal [facility] Comment on above: Performed By: #### 1 [id number], 21345128, 3446665, 5035040113, 0559386582, 5323678700 #### [facility] (DEFAULT) [address] [place] [address] 29454 MCH (RBC) [Entitic mass] 27 pg Normal 24-34 [facility] Comment on above: Performed By: #### 1 767596844, 29094484, 6800218, 2562029913, 3603481397, 5215346847 #### [facility] (DEFAULT) [address] [place] [address] 16993 MCHC (RBC) [Mass/Vol] 35 g/dL Normal 26-37 [facility] Comment on above: Performed By: #### 1 972058728, 10830184, 3354417, 9239797967, 4380143010, 5236228845 #### [facility] (DEFAULT) [address] [place] [address] 37777 MCV (RBC) [Entitic vol] 78 fL Low 81-100 [facility] Comment on above: Performed By: #### 1 874327226, 94415494, 3187982, 5836094395, 6116274568, 4194658884 #### [facility] (DEFAULT) [address] [place] [address] 14549 Platelet 152 x10 Normal 138-427 [facility] Comment on above: Performed By: #### 1 273959900, 94189075, 4642739, 4338652083, 7493121655, 3833786057 #### [facility] (DEFAULT) [address] [place] [address] Platelet mean volume (Bld) [Entitic vol] 9.9 fL Normal 6.3-10.2 [facility] Comment on above: Performed By: #### 1 879102135, 15088409, 3652973, 3363638929, 1342129448, 8261020672 #### [facility] (DEFAULT) [address] [place] [address] RBC 5.33 x10 High 3.70-5.30 [facility] Comment on above: Performed By: #### 1 164300524, 54281697, 4258411, 2158502739, 0217668590, 3860871358 #### [facility] (DEFAULT) [address] [place] [address] WBC 2.6 x10 Low 3.5-10.5 [facility] Comment on above: Performed By: #### 1 091574832, 68826635, 5786443, 6024449577, 8196169444, 8341583335 #### [facility] (DEFAULT) [address] [place] [address] Standardon 05-26-2021 eGFR Non AA >60 Invalid Interpretation Code [facility] Comment on above: Performed By: #### 1 [id number], 72640766, 0243435, 2172384884, 0091390570, 5455471877 #### [facility] (DEFAULT) [address] [place] [address] eGFR AA >60 Invalid Interpretation Code [facility] Comment on above: Result Comment: Instrument Technician carson Kidney disease could be indicated at eGFRs of less than 60 ml/min/1.73m2. Kidney Failure is indicated at less than 15 ml/min/1.73m2 Performed By: #### 1 644386798, 88012981, 2691059, 1799507085, 6789528682, 2354484093 #### [facility] (DEFAULT) [address] [place] [address] 91614 Albumin [Mass/Vol] 4.1 g/dL Normal 3.5-5.0 [facility] Comment on above: Performed By: #### 1 599186724, 88824554, 3378093, 4224742099, 3206953917, 0441375534 #### [facility] (DEFAULT) [address] [place] [address] Albumin/Globulin [Mass ratio] 1.3 {ratio} Low 1.4-2.6 [facility] Comment on above: Performed By: #### 1 091101393, 81018747, 7645045, 8206819639, 3485700249, 4246332396 #### [facility] (DEFAULT) [address] [place] [address] Alk Phos 58 IU/L Normal 32-91 [facility] Comment on above: Performed By: #### 1 216136411, 96104930, 2409561, 6770436590, 7048578187, 9175957814 #### [facility] (DEFAULT) [address] [place] [address] 24727 ALT [Catalytic activity/Vol] 81.0 U/L High 17.0-63.0 [facility] Comment on above: Performed By: #### 1 158895228, 68965279, 8718542, 9736211004, 0126064594, 5018784503 #### [facility] (DEFAULT) [address] [place] [address] 72767 Anion gap [Moles/Vol] 15.0 mmol/L Normal 5.0-19.0 [facility] Comment on above: Performed By: #### 1 740938591, 87221069, 1584693, 4465299080, 6177104613, 6131043651 #### [facility] (DEFAULT) [address] [place] [address] 05198 AST [Catalytic activity/Vol] 97 U/L High 15-41 [facility] Comment on above: Performed By: #### 1 494760237, 12609644, 8423120, 5510580851, 1630527831, 4645148035 #### [facility] (DEFAULT) [address] [place] [address] 38344 Bili Total 0.9 mg/dL Normal 0.3-1.2 [facility] Comment on above: Performed By: #### 1 505686303, 09793904, 4754430, 0928230814, 5308118380, 6402172793 #### [facility] (DEFAULT) [address] [place] [address] 74537 Calcium [Mass/Vol] 8.5 mg/dL Low 8.9-10.3 [facility] Comment on above: Performed By: #### 1 705986925, 33390968, 9687424, 7631965952, 6565808466, 4674245612 #### [facility] (DEFAULT) [address] [place] [address] 51605 Chloride [Moles/Vol] 93 mmol/L Low 101-111 [facility] Comment on above: Performed By: #### 1 966347213, 13245961, 0778648, 2450408794, 3298633339, 7905721558 #### [facility] (DEFAULT) [address] [place] [address] 13513 CO2 [Moles/Vol] 27 mmol/L Normal 21-32 [facility] Comment on above: Performed By: #### 1 593328014, 87939745, 9214215, 4218095563, 4798761008, 0437071458 #### [facility] (DEFAULT) [address] [place] [address] 27202 Creatinine [Mass/Vol] 1.22 mg/dL Normal 0.90-1.30 [facility] Comment on above: Performed By: #### 1 160515514, 88282041, 5897090, 5711289530, 6876637912, 3077188453 #### [facility] (DEFAULT) [address] [place] [address] 72169 Globulin (S) [Mass/Vol] 3.1 g/dL Normal 1.5-4.3 [facility] Comment on above: Performed By: #### 1 787490087, 07946437, 1234428, 6265853670, 2334841214, 4958032947 #### [facility] (DEFAULT) [address] [place] [address] 86344 Glucose [Mass/Vol] 116.0 mg/dL Normal 74.0-118.0 [facility] Comment on above: Performed By: #### 1 743145761, 20031685, 0238682, 2023933849, 4023139110, 7289451455 #### [facility] (DEFAULT) [address] [place] [address] 15636 Osmolality 270 mOsm/L Invalid Interpretation Code [facility] Comment on above: Performed By: #### 1 727626031, 43196685, 6830978, 8961677755, 3014344570, 4275583857 #### [facility] (DEFAULT) [address] [place] [address] 59538 Potassium [Moles/Vol] 3.3 mmol/L Low 3.6-5.1 [facility] Comment on above: Performed By: #### 1 185274140, 99452209, 9185728, 9685304149, 8831659970, 7464500069 #### [facility] (DEFAULT) [address] [place] [address] 69871 Protein [Mass/Vol] 7.2 g/dL Normal 6.5-8.1 [facility] Comment on above: Performed By: #### 1 033157684, 26503915, 3915995, 3611169175, 6572365064, 9433098113 #### [facility] (DEFAULT) [address] [place] [address] 21309 Sodium [Moles/Vol] 132.0 mmol/L Low 136.0-144.0 [facility] Comment on above: Performed By: #### 1 404425467, 04791923, 0924780, 8614622038, 9273141431, 4400340766 #### [facility] (DEFAULT) [address] [place] [address] 85536 Urea nitrogen [Mass/Vol] 24 mg/dL Normal 8- [facility] Comment on above: Performed By: #### 1 696781577, 76153757, 9187091, 9565515499, 0081298220, 0797244883 #### [facility] (DEFAULT) [address] [place] [address] Urea nitrogen/Creatinin e [Mass ratio] 20.0 mg/mg High 4.6-16.2 [facility] Comment on above: Performed By: #### 1 139096579, 83237448, 2434250, 9484853534, 5207515161, 8481419566 #### [facility] (DEFAULT) [address] [place] [address] 01334 Consent Formson 05-26-2021 Consent Forms [id number] [facility] [id number][facility] Summaryon 2020 ED Clinical Summary [facility] - Emergency Department [address] [place] [address] ED Clinical Summary PERSON INFORMATION Name: WM GILLILAND Age: 40 Years Sex: MALE : 1980 MRN: Acct#: Visit Reason: Shortness of breath; Weakness; Dizziness; C/O SOB, BODY ACHES, CHEST TIGHTNESS- COVID + Arrival: 05/26/2021 13:57:53 Discharge: 05/26/2021 17:45:00 LOS: 000 03:48 Check In: 05/26/2021 13:57:53 Checkout:05/26/2021 17:45:00 Address: [address], [address] [facility] [address] PCP: Mary Malone DO PROVIDER INFORMATION Provider Role Assigned Unassigned Valerie Quintana RN ED Nurse 05/26/2021 14:02:47 Trell Watts ED 05/26/2021 14:03:48 VITALS INFORMATION Vital Sign Triage Latest Temperature Tympanic 36.6 DegC 36.6 DegC Temperature Temporal Artery Pulse Rate 88 bpm 83 bpm O2 Sat 97 % 93 % Respiratory Rate 18 br/min 16 br/min Blood Pressure /77 mmHg /77 mmHg MEDICAL INFORMATION Medications Given: Medication Dose Route ketorolac (Toradol) 30 mg IV albuterol (albuterol 90 mcg/inh aerosol) 360 mcg INH ondansetron (Zofran) 4 mg IV Push casirivimab-imdevima b 1200 mg IV potassium chloride (potassium chloride 20 mEq oral tablet, extended release) 20 mEq PO Allergy Information: No Known Medication Allergies PHYSICIAN DOCUMENTATION Patient: WM GILLILAND Age: 40 years Sex: MALE : 1980 Associated Diagnoses: Shortness of breath; Lightheadedness; Hypokalemia; Dehydration, mild; COVID-19; Body aches; Nausea; Leukopenia; Elevated LFTs Author: Trell Watts Basic Information Time seen: Date & time 05/26/2021 14:05:00. History source: Patient. Arrival mode: Private vehicle. History limitation: None. History of Present Illness Patient is a 40-year-old male with a past history of hypertension, current diagnosis of COVID-19, the reports was diagnosed last week on , so is 9 days out from the infection, who presents for evaluation of lightheadedness, generalized body aches, weakness, shortness of breath, patient seen in room 6. Patient states that he was diagnosed last , with the symptoms, he is only been doing home treatment, and try to keep hydrated, but states he has been having fevers for 8 days, and it finally broke yesterday, but he feels dehydrated and weak, and nauseous at times, he feels short of breath, and has some chest pain with deep breathing. He feels lightheaded at times, but not dizzy with the room spinning. Denies chest pain otherwise, abdominal pain, hematuria or dysuria. Review of Systems Constitutional symptoms: Negative except as documented in HPI. Skin symptoms: No rash, no abrasions. Eye symptoms: No discharge, no diplopia, no blurred vision. ENMT symptoms: Negative except as documented in HPI. Respiratory symptoms: Negative except as documented in HPI. Cardiovascular symptoms: Negative except as documented in HPI. Gastrointestinal symptoms: Nausea, no abdominal pain, no vomiting. Musculoskeletal symptoms: Negative except as documented in HPI. Neurologic symptoms: Negative except as documented in HPI. Health Status Allergies: Allergic Reactions (All) No Known Medication Allergies. Medications: (Selected) Documented Medications Documented Lexapro 20 mg oral tablet: 20 mg = 1 tab(s), PO, Daily, 0 Refill(s) Middle [place] 7.5 mg-325 mg oral tablet: 1 tab(s), PO, q6hr, PRN: for pain, 0 Refill(s) Vitamin D3 1000 intl units oral tablet: 1,000 International_Unit = 1 tab(s), PO, Daily, 0 Refill(s) busPIRone 5 mg oral tablet: 5 mg = 1 tab(s), PO, BID, 0 Refill(s) hydrochlorothiazide- lisinopril 25 mg-20 mg oral tablet: 1 tab(s), PO, Daily, 0 Refill(s) metoprolol tartrate 25 mg oral tablet: 25 mg = 1 tab(s), PO, BID, 0 Refill(s). Past Medical/ Family/ Social History Medical history: No active or resolved past medical history items have been selected or recorded.. Surgical history: Laparoscopic cholecystectomy ([id number]) on 03/25/2019 at 38 Years.. Family history: No family history items have been selected or recorded.. Social history: Social & Psychosocial Habits Alcohol 03/24/2019 Alcohol Use: Never Substance Abuse Comment: Denies - 03/21/2019 14:03 - Mamta Gaona RN Tobacco 03/21/2019 Smoking tobacco use: Former smoker, quit more . Problem list: Active Problems (1) Hypertension . Physical Examination Vital Signs Vital Signs 05/26/2021 14:09 EST Temperature Tympanic 36.6 DegC Peripheral Pulse Rate 88 bpm Respiratory Rate 18 br/min Systolic Blood Pressure 137 mmHg Diastolic Blood Pressure 77 mmHg SpO2 97 % Oxygen Therapy Room air . General: Alert, no acute distress. Skin: Warm, dry. Head: Normocephalic, atraumatic. Neck: Supple, trachea midline. Eye: Extraocular movements are intact, normal conjunctiva. Ears, nose, mouth and throat: Patient's tongue is midline, he has a dry oral mucosa.. Cardiovascular: +S1, S2 Regular (more content not included)... Normal [facility] ED Note - Physicianon 2020 ED Note - Physician Patient: WM GILLILAND Age: 40 years Sex: MALE : 1980 Associated Diagnoses: Shortness of breath; Lightheadedness; Hypokalemia; Dehydration, mild; COVID-19; Body aches; Nausea; Leukopenia; Elevated LFTs Author: Trell Watts Basic Information Time seen: Date & time 05/26/2021 14:05:00. History source: Patient. Arrival mode: Private vehicle. History limitation: None. History of Present Illness Patient is a 40-year-old male with a past history of hypertension, current diagnosis of COVID-19, the reports was diagnosed last week on , so is 9 days out from the infection, who presents for evaluation of lightheadedness, generalized body aches, weakness, shortness of breath, patient seen in room 6. Patient states that he was diagnosed last , with the symptoms, he is only been doing home treatment, and try to keep hydrated, but states he has been having fevers for 8 days, and it finally broke yesterday, but he feels dehydrated and weak, and nauseous at times, he feels short of breath, and has some chest pain with deep breathing. He feels lightheaded at times, but not dizzy with the room spinning. Denies chest pain otherwise, abdominal pain, hematuria or dysuria. Review of Systems Constitutional symptoms: Negative except as documented in HPI. Skin symptoms: No rash, no abrasions. Eye symptoms: No discharge, no diplopia, no blurred vision. ENMT symptoms: Negative except as documented in HPI. Respiratory symptoms: Negative except as documented in HPI. Cardiovascular symptoms: Negative except as documented in HPI. Gastrointestinal symptoms: Nausea, no abdominal pain, no vomiting. Musculoskeletal symptoms: Negative except as documented in HPI. Neurologic symptoms: Negative except as documented in HPI. Health Status Allergies: Allergic Reactions (All) No Known Medication Allergies. Medications: (Selected) Documented Medications Documented Lexapro 20 mg oral tablet: 20 mg = 1 tab(s), PO, Daily, 0 Refill(s) Middle [place]a 7.5 mg-325 mg oral tablet: 1 tab(s), PO, q6hr, PRN: for pain, 0 Refill(s) Vitamin D3 1000 intl units oral tablet: 1,000 International_Unit = 1 tab(s), PO, Daily, 0 Refill(s) busPIRone 5 mg oral tablet: 5 mg = 1 tab(s), PO, BID, 0 Refill(s) hydrochlorothiazide- lisinopril 25 mg-20 mg oral tablet: 1 tab(s), PO, Daily, 0 Refill(s) metoprolol tartrate 25 mg oral tablet: 25 mg = 1 tab(s), PO, BID, 0 Refill(s). Past Medical/ Family/ Social History Medical history: No active or resolved past medical history items have been selected or recorded.. Surgical history: Laparoscopic cholecystectomy ([id number]) on 03/25/2019 at 38 Years.. Family history: No family history items have been selected or recorded.. Social history: Social & Psychosocial Habits Alcohol 03/24/2019 Alcohol Use: Never Substance Abuse Comment: Denies - 03/21/2019 14:03 - Mamta Gaona RN Tobacco 03/21/2019 Smoking tobacco use: Former smoker, quit more . Problem list: Active Problems (1) Hypertension . Physical Examination Vital Signs Vital Signs 05/26/2021 14:09 EST Temperature Tympanic 36.6 DegC Peripheral Pulse Rate 88 bpm Respiratory Rate 18 br/min Systolic Blood Pressure 137 mmHg Diastolic Blood Pressure 77 mmHg SpO2 97 % Oxygen Therapy Room air . General: Alert, no acute distress. Skin: Warm, dry. Head: Normocephalic, atraumatic. Neck: Supple, trachea midline. Eye: Extraocular movements are intact, normal conjunctiva. Ears, nose, mouth and throat: Patient's tongue is midline, he has a dry oral mucosa.. Cardiovascular: +S1, S2 Regular. Respiratory: Patient's lungs are auscultated, there is no wheezing, there is no stridor. There is no respiratory distress.. Gastrointestinal: Soft, Nontender, Non distended, Normal bowel sounds, No guarding, no rebound, some palpation causes slight degree of nausea.. Neurological: Alert and oriented to person, place, time, and situation, No focal neurological deficit observed. Psychiatric: Cooperative. Medical Decision Making Differential Diagnosis: Pneumonia, bronchitis, pulmonary embolism, COVID-19 infection, pneumonia,. Orders Launch Orders Laboratory: CMP Standard (Order): Blood, Stat collect, 05/26/2021 14:14 EST, Lab Collect Troponin I High Sensitivity (Order): Blood, Stat collect, 05/26/2021 14:14 EST, Lab Collect CBC w/ Auto Diff (Order): Blood, Stat collect, 05/26/2021 14:14 EST, Lab Collect Pharmacy: albuterol 90 mcg/inh aerosol (Order): 4 puff(s), INH, Once Normal Saline Flush (Order): 10 mL, IV Push, As Directed Toradol (Order): 30 mg, IV, Once Sodium Chloride 0.9% intravenous solution (Order): 1,000 mL, 999 mL/hr, IV, NOW Radiology: XR Chest 1 View Frontal (Order): 05/26/2021 14:14 EST Stat, Shortness of breath, Allow Modification Per Radiologist, Transport Mode: Wheelchair, Patient is Covid positive, now short of breath with cough. Respiratory Therapy: Meter Dose (more content not included)... Normal [facility] ED Patient Summaryon 021 ED Patient Summary [facility] - Emergency Department [address] [place] [address] PATIENT DISCHARGE INSTRUCTIONS Patient Information Name: WM GILLILAND Age: 40 Years Date of : 1980 Reason For Visit: Shortness of breath; Weakness; Dizziness; C/O SOB, BODY ACHES, CHEST TIGHTNESS- COVID + Arrival Time: 05/26/2021 13:57:53 Primary Care Physician: Mary Malone DO Attending Physician: Zachary Franks MD Comment: Visit Diagnosis: Diagnoses This Visit Body aches (R52) COVID-19 (U07.1) Dehydration, mild (E86.0) Dizziness ([id number]) Elevated LFTs (R79.89) Hypokalemia (E87.6) Leukopenia (D72.819) Lightheadedness (R42) Nausea (R11.0) Shortness of breath (R06.02) Shortness of breath ([id number]) Weakness ([id number]) Prescription Information: If you have been given a prescription for narcotics, seek immediate medical attention if you have any difficulty breathing or any sudden status changes such as confusion and sleepiness. If you or anyone you know is experiencing suicidal thoughts, mental health, alcohol and/or drug addiction problems; contact the [facility] 04/02 Crisis Hotline -Text 4HURG to 803717. If you received any narcotics, sedation, or any other medication that causes drowsiness for the next 24 hours, unless otherwise directed: ? Do not drive a car. ? Do not operate machinery such as power tools, lawn mowers, drills, sewing machines, or stoves ? Avoid alcoholic beverages and drugs for allergies, nerves, or sleep ? Do not make important personal or business decisions or sign any legal documents With: Address: When: Mary Malone [address] [place] [address] Business (1) Within 3 to 5 days Comments: Diagnosis is COVID-19, from history, you have COVID-19, were diagnosed 9 days ago, and now diagnosed with dehydration, shortness of breath, body aches, hypokalemia or low potassium level, and leukopenia, low white count. From physical exam, you appeared dehydrated, laboratory work-up showed a decreased white blood cell count, which possibly could be from the infection, but this needs to be evaluated by your primary care provider. You also had a low potassium level which we provide you with supplemental medication. Keep hydrated. Also provided you with an infusion of the monoclonal antibody called Regen- Cov, which will help your body fight the viral infection. We provided you with an inhaler, use this with a spacer, 4 puffs, every 4-6 hours at least for the next 3 days, and as needed for shortness of breath. Keep hydrated. For any body aches, or fever May take qsjy-piq-sydiacd Tylenol or ibuprofen. Do not take more than 4000 mg of Tylenol in a 24-hour. Do not drive, or operate any type of machinery while you are dizzy, do not drive, or operate a motor vehicle or machinery until you have been without lightheadedness or dizziness for 24 hours. You are quarantined at home, from 10 days from initial diagnosis. With no running errands, going out, going to work, wear your mask to protect others at home. Follow-up with your own primary care provider in regards to the decreased white count as discussed, and also your current illness by phone to discuss and develop a treatment plan. Return to the emergency department for worsening symptoms or concerns, spiking fevers, tractable nausea or vomiting, acute shortness of breath or chest pain, or any questions. Prescription been electronically sent to [facility] in [place]. Medication Information: The exam and treatment you received today in the [facility] Emergency Department were for an urgent problem and are not intended as complete care. It is important for you to follow up with a doctor, nurse practitioner, or physician?s economist research assistant for ongoing care. If your symptoms become worse or you do not improve as expected and you are unable to reach your usual health care provider, you should return to the Emergency Department, we are available 24 hours a day. For those patients who have received Radiology results, the interpretation of your X-ray as given to you by our Emergency Department physician is only a preliminary report. The Radiologist will review your films and if there is a change in the diagnosis you will be notified by phone. Please make sure you have provided a working phone number so we can reach you if necessary. In the event that you had a lab culture while you were a patient in the Emergency Department, you will be notified by phone if there is a need to change your antibiotic. Please make sure you have provided a working phone number so we can reach you if necessary. [facility] Emergency Department has provided you with a complete list of medications post discharge. Please inform your clamp jig assembler/provider of your visit and for further instruction on these (more content not included)... Normal [facility] Extra Redon 05-26-2021 Tube Collected Yes Invalid Interpretation Code [facility] Comment on above: Performed By: #### 1 [id number], [id number] #### [facility] (DEFAULT) [address] [id number] TnI HSon 05-26-2021 Troponin I High Sensitivity 8 pg/mL Normal <=20 [facility] Comment on above: Result Comment: Male Baseline Delta 1Hr (Note pg/mL=ng/L) <20pg/mL 50-60% >20pg/mL 20% Female Baseline Delta 1Hr <15pg/mL 50-60% >15pg/mL 20% Other Baseline Delta 1Hr <18ng/mL 50-60% >18ng/mL 20% ([place] [employer] Guidelines February 2018) Performed By: #### 1 [id number], [id number] #### [facility] (DEFAULT) [address] [place] [address] XR Chest 1 View Frontalon XR Chest 1 View Frontal EXAM: XR Chest 1 View Frontal HISTORY: Shortness of breath COMPARISON: Chest study dated 03/21/2019 TECHNIQUE: AP view of the chest was obtained with portable technique at 4:07 PM. FINDINGS: Heart and mediastinal contours are unremarkable in appearance. Minimal increased density overlying the right lower lung field with mild patchy increased density overlying the left mid and lower lung field regions suspect for infiltrate. Bony structures are grossly intact. IMPRESSION: Suspect minimal infiltrate on the right and mild infiltrate on the left as described. Final Dictated by: James Piña MD Dictated DT/TM: 05/26/21 4:15 Signed (Electronic Signature): James Piña MD 05/26/21 4:18 pm Technologist: [facility] Normal [facility] Covid-19 PCR (CVDTBH)on SARS-CoV-2 (COVID-19) RNA OSCAR+probe Ql (Unsp spec) Detected Critically abnormal NOT DETECTED [facility] Comment on above: Result Comment: This test is not yet approved or cleared by the [place] FDA. When there are no FDA-approved or cleared tests available, and other criteria are met, FDA can make tests available under an emergency access mechanism called an Emergency Use Authorization (EUA). The EUA for this test is supported by the [place] of Health and Human Service's (HHS's) declaration that circumstances exist to justify the emergency use of in vitro diagnostics for the detection and/or diagnosis of the virus that causes COVID-19. This EUA will remain in effect (meaning this test can be used) for the duration of the COVID-19 declaration justifying emergency of IVDs, unless it is terminated or revoked by FDA (after which the test may no longer be used). Performed By: #### C VDTB #### [facility] [address], [place] [address] Dr. Eric Canales Covid-19 PCR ([facility])on EUA Statement SEE BELOW Normal [facility] Comment on above: Result Comment: This test is not yet approved or cleared by the [place] FDA. When there are no FDA-approved or cleared tests available, and other criteria are met, FDA can make tests available under an emergency access mechanism called an Emergency Use Authorization (EUA). The EUA for this test is supported by the [place] of Health and Human Service?s (HHS?s) declaration that circumstances exist to justify the emergency use of in vitro diagnostics for the detection and/or diagnosis of the virus that causes COVID-19. This EUA will remain in effect (meaning this test can be used) for the duration of the COVID-19 declaration justifying emergency of IVDs, unless it is terminated or revoked by FDA (after which the test may no longer be used). When diagnostic testing is negative, the possibility of a false negative should be considered in the context of a patients recent exposures and the presence of clinical signs and symptoms consistent with SARS-CoV-2. Performed By: #### C VDTB #### [facility] [address] [place], [place] [address] Antonia Grey SARS-CoV-2 (COVID-19) RNA OSCAR+probe Ql (Unsp spec) Not detected Normal NOT DETECTED [facility] Comment on above: Result Comment: This test is not yet approved or cleared by the [place] FDA. When there are no FDA-approved or cleared tests available, and other criteria are met, FDA can make tests available under an emergency access mechanism called an Emergency Use Authorization (EUA). The EUA for this test is supported by the [place] of Health and Human Service's (HHS's) declaration that circumstances exist to justify the emergency use of in vitro diagnostics for the detection and/or diagnosis of the virus that causes COVID-19. This EUA will remain in effect (meaning this test can be used) for the duration of the COVID-19 declaration justifying emergency of IVDs, unless it is terminated or revoked by FDA (after which the test may no longer be used). Performed By: #### C [facility] #### [facility] [address] [place] [address] Antonia Grey Vital Signs Date Time Vital Sign Value Performing Clinician Facility 04-29-2024 14:26-0400 Body height 180.3 cm Johnny Abreu WALLPAPER SCRAPER Work Phone: [facility] 04-29-2024 14:26-0400 Body mass index (BMI) [Ratio] 39.36 kg/m2 Johnny Abreu WALLPAPER SCRAPER Work Phone: [facility] 04-29-2024 14:26-0400 Body weight 128 kg Johnny Abreu WALLPAPER SCRAPER Work Phone: [facility] 04-29-2024 14:26-0400 Diastolic blood pressure 70 mm[Hg] Johnny Abreu WALLPAPER SCRAPER Work Phone: [facility] 04-29-2024 14:26-0400 Heart rate 67 /min Johnny Abreu WALLPAPER SCRAPER Work Phone: [facility] 04-29-2024 14:26-0400 SaO2% (BldA) [Mass fraction] 97 % Johnny Abreu WALLPAPER SCRAPER Work Phone: [facility] 04-29-2024 14:26-0400 Systolic blood pressure 112 mm[Hg] Johnny Abreu WALLPAPER SCRAPER Work Phone: [facility] 07-16-2022 15:30-0500 Body height 180.34 cm Reshma Kiser [facility] 07-16-2022 15:30-0500 Body mass index (BMI) [Ratio] 37.93 kg/m2 Reshma Margi [facility] 07-16-2022 15:30-0500 Body temperature 98.6 [degF] Reshma Kiser [facility] 07-16-2022 15:30-0500 Body weight 123.38 kg Reshma Kiser [facility] 07-16-2022 15:30-0500 Diastolic blood pressure 77 mm[Hg] Reshma Kiser [facility] 07-16-2022 15:30-0500 Respiratory rate 18 /min Reshma Kiser [facility] 07-16-2022 15:30-0500 SaO2% (BldA) [Mass fraction] 98 % Reshma Kiser [facility] 07-16-2022 15:30-0500 Systolic blood pressure 122 mm[Hg] Reshma Kiser Other [facility] Other Encounters Encounter Date Encounter Type Care Provider Facility Start: 06-19-2024 End: 06-19-2024 Telephone encounter Johnny Abreu WALLPAPER SCRAPER Work Phone: [facility] Start: 06-03-2024 End: 06-03-2024 Refill Johnny Abreu WALLPAPER SCRAPER Work Phone: [facility] Comment on above: Generalized anxiety disorder (CMS/HCC) Start: 04-29-2024 End: 04-29-2024 Patient encounter status Johnny Abreu WALLPAPER SCRAPER Work Phone: [facility] Start: 04-29-2024 End: 04-29-2024 Periodic preventive med est patient 40-64yrs Johnny Abreu WALLPAPER SCRAPER Work Phone: [facility] Comment on above: Encounter for [facility] ss examination (Primary Dx); Primary hypertension (CMS/HCC); Mixed hyperlipidemia (CMS/HCC); LETTY (obstructive sleep apnea); Hypersomnia; Hypertriglyceridemia (CMS/HCC); Dysthymia (CMS/HCC); Body mass index (BMI) 39.0-39.9, adult Start: 04-29-2024 End: 04-29-2024 ambulatory JOHNNY ABREU Not Available Start: 04-29-2024 End: 04-29-2024 Bamboo flowsheet Johnny Abreu WALLPAPER SCRAPER Work Phone: [facility] Start: 04-29-2024 End: 04-29-2024 Bamboo flowsheet Johnny Abreu WALLPAPER SCRAPER Work Phone: [facility] Start: 04-26-2024 End: 04-27-2024 Refill Johnny Abreu WALLPAPER SCRAPER Work Phone: [facility] Comment on above: Hypertriglyceridemia (CMS/HCC) Start: 03-30-2024 End: 03-30-2024 Orders Only Johnny Abreu WALLPAPER SCRAPER Work Phone: [facility] Comment on above: Hypertriglyceridemia (CMS/HCC) (Primary Dx) Start: 03-25-2024 End: 03-25-2024 ambulatory JOHNNY ABREU Not Available Start: 03-25-2024 End: 03-26-2024 Telephone encounter Johnny Abreu WALLPAPER SCRAPER Work Phone: [facility] Start: 01-23-2024 End: 01-23-2024 ambulatory CARLOS ALBERTO MOORE Not Available Start: 12-05-2023 End: 12-06-2023 Emergency department patient visit [facility] Start: 10-07-2023 End: 10-07-2023 ambulatory FRANCHESCA EARLY Not Available Start: 09-23-2023 End: 09-23-2023 ambulatory JOHNNY ABREU Not Available Start: 07-16-2022 End: 07-16-2022 ambulatory Reshma Kiser [facility] Start: 07-16-2022 Office outpatient ne w 20 minutes Reshma Kiser [facility] Start: 04-25-2022 End: 04-25-2022 Lab Drop off Myranda Montanez [facility] Start: 04-24-2022 End: 04-26-2022 ambulatory Myranda Leslie Montanez [place] [place]: 05-22-2021 End: 05-22-2021 ambulatory MARCIA ESTEVES Facility: Start: 06-20-2020 End: 06-21-2020 ambulatory CORINNESHERIF CALABRESEJOANEDITH Facility:[facility] Procedures Date Procedure Procedure Detail Performing Clinician Start: 10-29-2023 Colonoscopy Johnny prescott NP Work Phone: Plan of Treatment Date Care Activity Detail Author Start: 10-28-2033 Screening for malignant neoplasm of colon [facility] Start: 04-14-2025 Influenza vaccination Influenza Vaccine (#1) [facility] Comment on above: Postponed from 03/15/2024 (Patient Refus ed) Start: 04-29-2024 End: 04-29-2024 Patient encounter procedure [facility] Comment on above: Arrived Start: 04-29-2024 End: 04-29-2025 Polysomnography [facility] Routine LETTY (obstructive sleep apnea) Hypersomnia Expected: 04/29/2024 (Approximate), Expires: 04/29/2025 [facility] Work Phone: Comment on above: Expected: 04/29/2024 (Approximate), Expi res: 04/29/2025 Start: 03-30-2024 End: 03-30-2025 Hemoglobin A1c/Hemoglobin.total in Blood Hemoglobin A1c Lab Routine Hypertriglyceridemia (CMS/HCC) Expected: 03/30/2024 (Approximate), Expires: 03/30/2025 [facility] Comment on above: Expected: 03/30/2024 (Approximate), Expi res: 03/30/2025 Start: 03-30-2024 End: 03-30-2025 TSH W/REFLEX TO FT4 TSH W/REFLEX TO FT4 Lab Routine Hypertriglyceridemia ([facility]/HCC) Expected: 03/30/2024 (Approximate), Expires: 03/30/2025 [facility] Work Phone: Comment on above: Expected: 03/30/2024 (Approximate), Expi res: 03/30/2025 Start: 03-30-2024 End: 03-30-2025 Urinalysis complete panel - Urine Urinalysis with reflex microscopic (clean catch) Lab Routine Hypertriglyceridemia (CMS/HCC) Expected: 03/30/2024 (Approximate), Expires: 03/30/2025 [facility] Comment on above: Expected: 03/30/2024 (Approximate), Expi res: 03/30/2025 Start: 03-15-2024 Influenza vaccination Influenza Vaccine (#1) [facility] Start: 1980 Screening for malignant neoplasm of colon [facility] Payers Date Payer Category Payer [facility] BCBS [id number] 2019 Unknown BCBS BCBS [id number] [id number] 2019-Present [phone] [address] [place] [address] [id number] 1978 Unknown [id number] [id number]. 2.593 1978 Unknown [id number] 2.16.840.1.896277.3.579. 2.593 1978 Unknown [id number] 2.16.840.1.662265.3.579. 2.727 1978 Unknown [id number] 2.16.840.1.567646.3.579. 2.6 1978 Unknown [id number] 2.16.840.1.248622.3.579. 2.6 1978 Unknown [id number] 2.16.840.1.887467.3.579. 2.6 1978 Unknown [id number] 2.16.840.1.817371.3.579. 2.9 1978 Unknown [id number] 2.16.840.1.060634.3.579. 2.9 1978 Unknown [id number] 2.16.840.1.364288.3.579. 2.9 1978 Unknown [id number] 2.16.840.1.552657.3.579. 2.1258 1978 Unknown [id number] [id number]. 2.1259 1959 Unknown [id number] Social History Date Type Detail Facility Tobacco smoking status [facility] Start: 03-25-2023 End: 03-25-2024 Sex Assigned At Male [facility] Start: 01-23-2024 Tobacco smoking status [facility] Ex-smoker [facility] End: 03-15-2021 History of tobacco use Current smoker [facility] End: 03-15-2021 History of tobacco use Cigarette Smoker [facility] Start: 01-23-2024 Tobacco use and exposure Former smokeless tobacco user [facility] History of tobacco use Chews Tobacco [facility] Start: 03-25-2024 End: 04-29-2024 Alcoholic beverage intake Lifetime non-drinker (finding) [facility] Start: 03-25-2023 End: 03-25-2024 [facility] Within the last year , have you been afraid of your partner or ex-partner? No [facility] Are you now , , , , never or living with a partner? [facility] How often to you hav e a drink containing alcohol? Monthly or less [facility] How many standard dr inks containing alcohol do you have on a typical day? 1 or 2 [facility] How often do you hav e 6 or more drinks on 1 occasion? Never [facility] How hard is it for y ou to pay for the very basics like food, housing, medical care, and heating Not very hard [facility] Do you feel stress - tense, restless, nervous, or anxious, or unable to sleep at night because your mind is troubled all the time - these days [OSQ] Very much [facility] (I/We) worried [facility] (my/our) food would run out before (I/we) got money to buy more. Never true [facility] In the past 12 month s, has lack of transportation kept you from medical appointments or from getting medications? No [facility] Start: 03-25-2024 Alcohol Comment caffeine: 2-3 cups coffee a day [facility] Start: 1980 Sex assigned at Not on file [facility] Clinical Notes 05-26-2021 to 06-19-2024 Telephone Encounter - Johnny Abreu NP - 06/19/2024 11:35 AM ESTTelephone Encounter - Johnny Abreu NP - 06/19/2024 11:35 AM Steffanie Abreu NP - 04/29/2024 3:00 PM EDT Note Date & Type Note Facility 06-19-2024 Telephone encount er Note Sleep apnea, recommend auto titrating cpap, if agreeable send message to the pool to submit supplies through parach[employer], will need follow up in 4 weeks to reassess after getting machine [facility] 06-19-2024 Miscellaneous Notes Formattin g of this note might be different from the original. Sleep apnea, recommend auto titrating cpap, if agreeable send message to the pool to submit supplies through parachute, will need follow up in 4 weeks to reassess after getting machine documented in this encounter [facility] 04-29-2024 History of Presen t illness Narrative Images from the original note were not included. Wm Gilliland is a 43 y.o. male presents with chief complaint of Annual Exam HPI: HPI Presents to the office for annual wellness. Has been trying to do better with his diet, doesn't drink. Believes his parents had high cholesterol. Has been researching about what are good food options. Feels tired a lot, has noticed he is getting headaches daily, does have witnessed apneic periods during sleep. Wakes up with a headache. Reports brain fog. SUBJECTIVE: MEDICATIONS: Current Outpatient Medications Medication Instructions atorvastatin (LIPITOR) 10 mg, Oral, Daily busPIRone (BUSPAR) 5 mg, Oral, 2 times daily cholecalciferol (VITAMIN D-3) 1,000 Units, Daily RT escitalopram (LEXAPRO) 20 mg, Oral, Daily losartan-hydroCHLOROthiazide (Hyzaar) 100-12.5 MG tablet 1 tablet, Oral, Daily metoprolol tartrate (Lopressor) 25 MG tablet TAKE 1 TABLET BY MOUTH TWICE A DAY WITH FOOD FOR 90 DAYS Multiple Vitamin (multivitamin) tablet 1 tablet, Daily omega-3 (Fish Oil) 1000 MG capsule 1 capsule, Every 24 hours propranolol (Inderal) 20 MG tablet TAKE 1 TABLET BY MOUTH 30-60 MINUTES BEFORE ANXIETY-PROVOKING SITUATION, TWICE DAILY NEEDED FOR 30 DAYS for 30 Vascepa 1 g capsule TAKE 2 CAPSULES (2 G) BY MOUTH IN THE MORNING AND 2 CAPSULES (2 G) IN THE EVENING. TAKE WITH MEALS. vitamin C 250 mg, Daily zinc gluconate 30 mg, Daily REVIEW OF SYMPTOMS: Review of Systems Constitutional: Positive for fatigue. Respiratory: Positive for apnea. Negative for shortness of breath. Neurological: Positive for headaches. Negative for dizziness, weakness and numbness. OBJECTIVE: Visit Vitals BP 112/70 (BP Location: Right arm, Patient Position: Sitting, BP Cuff Size: Large adult) Pulse 67 Ht 5' 11 Wt 282 lb 3.2 oz SpO2 97% BMI 39.36 kg/m Smoking Status Former BSA 2.53 m Physical Exam Vitals reviewed. Constitutional: Appearance: He is obese. HENT: Head: Normocephalic and atraumatic. Right Ear: Tympanic membrane normal. Left Ear: Tympanic membrane normal. Nose: Nose normal. Mouth/Throat: Mouth: Mucous membranes are moist. Eyes: Extraocular Movements: Extraocular movements intact. Pupils: Pupils are equal, round, and reactive to light. Neck: Comments: Enlarged neck circumference Cardiovascular: Rate and Rhythm: Normal rate and regular rhythm. Pulses: Normal pulses. Heart sounds: Normal heart sounds. Pulmonary: Effort: Pulmonary effort is normal. Breath sounds: Normal breath sounds. Abdominal: General: Abdomen is flat. Bowel sounds are normal. Palpations: Abdomen is soft. Musculoskeletal: General: Normal range of motion. Cervical back: Normal range of motion and neck supple. Skin: General: Skin is warm and dry. Capillary Refill: Capillary refill takes less than 2 seconds. Findings: No rash. Neurological: General: No focal deficit present. Mental Status: He is alert and oriented to person, place, and time. Psychiatric: Mood and Affect: Mood normal. Behavior: Behavior normal. Thought Content: Thought content normal. Judgment: Judgment normal. ASSESSMENT AND PLAN: Assessment/Plan Diagnoses and all orders for this visit: Encounter for wellness examination -Wellness performed at today. Height, weight, BMI, problem list, and immunizations records reviewed. Dental care discussed with patient. Encouraged annual vision screenings and semi-annual dental care. Encouraged healthy eating habits, limit or eliminate junk food and sources of excess calories. Encouraged regular periods of exercise, 150 minutes of exercise weekly or amount appropriate to current level of function. Discussed family/friend/social support and importance of maintaining emotional connections. Follow up annually and as needed. Primary hypertension (CMS/HCC) -Discussed current management plan. Goal BP less then 130/80. Discussed heart healthy diet, increase fruits and vegetables, limit salt intake. Encouraged increase physical exercise, try to be as active as possible at least 150 mins per week. Importance of weight management with a goal BMI less then 27 discussed. Discussed complications of uncontrolled blood pressure. Patient instructed to monitor BP's 1-2 times a week, keep a log, and bring to next visit. Barriers to care and medication compliance discussed. Patient voices understanding of meds. Mixed hyperlipidemia (CMS/HCC) - Ambulatory referral to Nutrition Services; Future -Labs today in office. Will refer over to casting technician to discuss dietary changes. If liver enzymes ok, consider increasing statin or adding a fibrate LETTY (obstructive sleep apnea) - Polysomnography; Future - Has risk factors for sleep apnea and witnessed apneic episodes, obtain sleep study for further evaluation Hypersomnia - Polysomnography; Future Hypertriglyceridemia (CMS/HCC) - Ambulatory referral to Nutrition Services; Future Dysthymia (CMS/HCC) -Mood is stable on current medications. Reviewed importance of healthy diet and exercise, stress management, and social support. documented in this encounter [facility] 03-25-2024 Telephone encount er Note Can you get his colonoscopy report, had it done at [place] by Dr. Early. [facility] 03-25-2024 Miscellaneous Notes Formattin g of this note might be different from the original. Can you get his colonoscopy report, had it done at [place] by Dr. Early. documented in this encounter [facility] 07-16-2022 Evaluation note Encounter Date Diagnosis Assessment Notes Jul, Contact with and (suspected) exposure to covid-19 (ICD-10 - Z20.822) Jul, Influenza A (ICD-10 - J10.1) Influenza: adult home care material was printed Drink plenty fluids, get plenty of rest. Take Tylenol or Motrin as needed for aches pains or fevers. Follow-up with your family physician if no improvement in 2 to 3 days. Jul, Bronchitis (ICD-10 - J40) [facility] 11-12-2021 [facility] Hypokalemia Hypokalemia means that the amount of potassium in the blood is lower than normal. Potassium is a chemical (electrolyte) that helps regulate the amount of fluid in the body. It also stimulates muscle tightening (contraction) and helps nerves work properly. Normally, most of the body's potassium is inside cells, and only a very small amount is in the blood. Because the amount in the blood is so small, minor changes to potassium levels in the blood can be life-threatening. What are the causes? This condition may be caused by: ? Antibiotic medicine. ? Diarrhea or vomiting. Taking too much of a medicine that helps you have a bowel movement (laxative) can cause diarrhea and lead to hypokalemia. ? Chronic kidney disease (CKD). ? Medicines that help the body get rid of excess fluid (diuretics). ? Eating disorders, such as bulimia. ? Low magnesium levels in the body. ? Sweating a lot. What are the signs or symptoms? Symptoms of this condition include: ? Weakness. ? Constipation. ? Fatigue. ? Muscle cramps. ? Mental confusion. ? Skipped heartbeats or irregular heartbeat (palpitations). ? Tingling or numbness. How is this diagnosed? This condition is diagnosed with a blood test. How is this treated? This condition may be treated by: ? Taking potassium supplements by mouth. ? Adjusting the medicines that you take. ? Eating more foods that contain a lot of potassium. If your potassium level is very low, you may need to get potassium through an IV and be monitored in the hospital. Follow these instructions at home: ? Take [id number] and prescription medicines only as told by your health care provider. This includes vitamins and supplements. ? Eat a healthy diet. A healthy diet includes fresh fruits and vegetables, whole grains, healthy fats, and lean proteins. ? If instructed, eat more foods that contain a lot of potassium. This includes: ? Nuts, such as peanuts and pistachios. ? Seeds, such as sunflower seeds and pumpkin seeds. ? Peas, lentils, and noe beans. ? Whole grain and bran cereals and breads. ? Fresh fruits and vegetables, such as apricots, avocado, bananas, cantaloupe, kiwi, oranges, tomatoes, asparagus, and potatoes. ? Ceiba juice. ? Tomato juice. ? Red meats. ? Yogurt. ? Keep all follow-up visits as told by your health care provider. This is important. Contact a health care provider if you: ? Have weakness that gets worse. ? Feel your heart pounding or racing. ? Vomit. ? Have diarrhea. ? Have diabetes (diabetes mellitus) and you have trouble keeping your blood sugar (glucose) in yourtarget range. Get help right away if you: ? Have chest pain. ? Have shortness of breath. ? Have vomiting or diarrhea that lasts for more than 2 days. ? Faint. Summary ? Hypokalemia means that the amount of potassium in the blood is lower than normal. ? This condition is diagnosed with a blood test. ? Hypokalemia may be treated by taking potassium supplements, adjusting the medicines that you take, or eating more foods that are high in potassium. ? If your potassium level is very low, you may need to get potassium through an IV and be monitoredin the hospital. This information is not intended to replace advice given to you by your health care provider. Make sure you discuss any questions you have with your health care provider. Document Revised: 02/11/2019 Document Reviewed: 02/11/2019 [employer] Patient Education ? 2019 [employer] Infectious Disease 10 Things You Can Do to Manage Your COVID-19 Symptoms at Home If you have possible or confirmed COVID-19: 1. Stay home from work and school. And stay away from other public places. If you must go out, avoid using any kind of public transportation, ridesharing, or taxis. 2. Monitor your symptoms carefully. If your symptoms get worse, call your healthcare provider immediately. 3. Get rest and stay hydrated. 4. If you have a medical appointment, call the healthcare provider ahead of time and tell them thatyou have or may have COVID-19. 5. For medical emergencies, call 911 and notify the dispatch personnel that you have or may have COVID-19. 6. Cover your cough and sneezes with a tissue or use the inside of your elbow. 7. Wash your hands often with soap and water for at least 20 seconds or clean your hands with an alcohol-based hand perforator that contains at least 60% alcohol. 8. As much as possible, stay in a specific room and away from other people in your home. Also, you should use a separate bathroom, if available. If you need to be around other people in or outside ofthe home, wear a mask. 9. Avoid sharing personal items with other people in your household, like dishes, towels, and bedding. 10. Clean all surfaces that are touched often, like counters, tabletops, and doorknobs. Use household cleaning sprays or wipes according to the lab (more content not included)...[facility] No data available [facility] this [facility] Diagnosis Hypertriglyceridemia (CMS/HCC) Pure hyperglyceridemia [facility] Diagnosis Encounter for wellness examination- Primary Primary hypertension (CMS/HCC) Unspecified essential hypertension Mixed hyperlipidemia (CMS/HCC) Mixed hyperlipidemia LETTY (obstructive sleep apnea) Obstructive sleep apnea (adult) (pediatric) Hypersomnia Hypersomnia, unspecified Hypertriglyceridemia (CMS/HCC) Pure hyperglyceridemia Dysthymia (CMS/HCC) Dysthymic disorder Body mass index (BMI) 39.0-39.9, adult [facility] Diagnosis Generalized anxiety disorder (CMS/HCC) Generalized anxiety disorder [facility] Diagnosis Hypertriglyceridemia (CMS/HCC)- Primary Pure hyperglyceridemia [facility] N[facility] - Reported* Type Description Date Medical History HTN (hypertension) Medical History Anxiety Surgical History cholecystectomy [facility] Hospital Discharge instructions No data [facility] this [facility] No data available [facility] Summary Purpose Family History No Family History Records FoundNo Family History Records FoundNo Family History Records FoundNo Family History Records FoundNo Family History Records FoundNo Family History Records Found Advance Directives No Advanced Directives Records FoundNo Advanced Directives Records FoundNo Advanced Directives Records FoundNo Advanced Directives Records FoundNo Advanced Directives Records FoundNo Advanced Directives Records Found Additional Source Comments (unrecognized sect ion and content) No Status Records FoundNo Status Records FoundNo Status Records FoundNo Status Records FoundNo Status Records FoundNo Status Records Found INFORMATION SOURCE (unrecogn ized section and content) DATE CREATED AUTHOR 05/28/2021 [facility] DATE CREATED AUTHOR AUTHOR'S ORGANIZ ATION 06/04/2021 [facility] DATE CREATED AUTHOR AUTHOR'S ORGANIZ ATION 08/28/2021 [facility] dical Specialist DATE CREATED AUTHOR AUTHOR'S ORGANIZ ATION 05/05/2022 [facility] DATE CREATED AUTHOR AUTHOR'S ORGANIZ ATION 12/07/2023 [facility] DATE CREATED AUTHOR AUTHOR'S ORGANIZ ATION 05/02/2024 [facility] dical Specialists EPIC REASON FOR VISIT (unrecogniz ed section and content) Reason Comments Med Refill Reason Comments Annual Exam Care Teams (unrecognized sec tion and content) 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 Relationship Specialty Start Date End Date Zhanna Metz MD [address] [facility] [place] [address] PCP - General Family Medicine 08/09/23 Johnny Abreu NP [address] [facility] [place] [address] PCP - [employer] 05/15/24 Zhanna Burger RN Registered Nurse Family Medicine 12/11/23 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 Relationship Specialty Start Date End Date Mary Malone DO [address] [facility] [place] [address] PCP - [employer] 04/14/22 Zhanna Metz MD [address] [facility] [place] [address] PCP - General Family Medicine 08/09/23 Zhanna Burger RN Registered Nurse Family Medicine 12/11/23 FOR RECORDS PERTAINING TO PATIENTS WHO ARE OR HAVE BEEN ENROLLED IN A CHEMICAL DEPENDENCY/SUBSTANCEABUSE PROGRAM, SOME INFORMATION MAY BE OMITTED. This clinical summary was aggregated from multiple sources. Caution should be exercised in using it in the provision of clinical care. This summary normalizes information from multiple sources, and as a consequence, information in this document may materially change the coding, format and clinical context of patient data. In addition, data may be omitted in some cases. CLINICAL DECISIONS SHOULD BE BASED ON THE PRIMARY CLINICAL RECORDS. [facility]. provides no warranty or guarantee of the accuracy or completeness of information in this document.
== END 2024-06-30 20:55 | disposition home or self-care (01) ==
LOC: SLEEP 20:55
PROVIDERS: PCP Nurse Practitioner Family; Visit Provider Nurse Practitioner Family
DX: G47.33 Obstructive sleep apnea (adult) (pediatric) (principal); G47.10 Hypersomnia, unspecified
CPT/HCPCS: 95811